=== PATIENT | female | born 1990 | race Caucasian/White ===

== ENCOUNTER 2023-04-28 09:15 | Emergency (ER) | payer OTHER ==
[2023-04-28 09:21] VITALS: TEMP 98.1
[2023-04-28] MEDS ORDERED: ORPHENADRINE 30 MG/ML 2 ML VIAL IM STA (09:35)
[2023-04-28] MEDS ORDERED: KETOROLAC 15 MG/ML 1 ML VIAL IM STA (09:35)
--- NOTE | 2023-04-28 09:35 | ED ---
Back Pain HPI - General Chief Complaint: Back Pain/Injury Stated Complaint: fall,back pain Time Seen by Provider: 04/28/23 09:30 Source: patient, RN notes reviewed Limitations: no limitations - History of Present Illness Initial Comments: Patient is a 32-year-old female presented to the emergency room with complaints of lower back pain that is acute on chronic. She reports falling off of a step stool and landing against her cabinets. She states that since that time she has had an increase in her lower back pain. She has chronic neuropathy in her feet from her low back pain and intermittent sciatica worse to her left than her right which she states is unchanged since the fall. She denies any new paresthesias, weakness, saddle paresthesia, bowel or bladder incontinence or other red flag symptoms for cauda equina. - Related Data Previous Rx's Medication Instructions Recorded Cyclobenzaprine HCl 10 mg PO TID PRN 7 Days #21 tab 04/28/23 Ketorolac [Toradol] 10 mg PO Q8H PRN 5 Days #15 tab 04/28/23 Allergies Allergy/AdvReac Type Severity Reaction Status Date / Time egg Allergy Nausea & Verified 04/28/23 09:22 Vomiting acetaminophen [From Percocet] AdvReac Nausea & Verified 04/28/23 09:22 Vomiting azithromycin AdvReac Nausea & Verified 04/28/23 09:22 Vomiting oxycodone [From Percocet] AdvReac Nausea & Verified 04/28/23 09:22 Vomiting Review of Systems ROS Statement: Those systems with pertinent positive or pertinent negative responses have been documented in the HPI. ROS Other: All systems not noted in ROS Statement are negative. Past Medical History Past Medical History: No Reported History History of Any Multi-Drug Resistant Organisms: None Reported Past Surgical History: Section Past Psychological History: Anxiety, Depression Smoking Status: Current every day smoker Past Alcohol Use History: None Reported Past Drug Use History: None Reported General Exam Limitations: no limitations General appearance: alert, in no apparent distress Head exam: Present: atraumatic, normocephalic, normal inspection Eye exam: Present: normal appearance, PERRL, EOMI. Absent: scleral icterus, conjunctival injection, periorbital swelling ENT exam: Present: normal exam, mucous membranes moist Neck exam: Present: normal inspection, full ROM Respiratory exam: Absent: respiratory distress, accessory muscle use Cardiovascular Exam: Present: regular rate GI/Abdominal exam: Present: soft. Absent: distended, tenderness, guarding, rebound, rigid Extremities exam: Absent: full ROM (BLE ROM limited by pain) Back exam: Present: tenderness (generalized without increase with palpation). Absent: CVA tenderness (R), CVA tenderness (L), muscle spasm, paraspinal tenderness, vertebral tenderness Neurological exam: Present: alert, oriented X3, CN II-XII intact Psychiatric exam: Present: normal affect, normal mood Skin exam: Present: warm, dry, intact, normal color. Absent: rash Course Vital Signs 04/28/23 04/28/23 09:17 11:34 Temperature 98.1 F 98.1 F Pulse Rate 99 82 Respiratory 18 16 Rate Blood Pressure 123/85 101/65 O2 Sat by Pulse 99 100 Oximetry Medical Decision Making - Medical Decision Making Was pt. sent in by a medical professional or institution (, PA, DIGITAL ADVISOR, urgent care, hospital, or assisted...) When possible be specific @ -No Did you speak to anyone other than the patient for history (EMS, parent, family, police, friend...)? What history was obtained from this source @ -No Did you review nursing and triage notes (agree or disagree)? Why? @ -I reviewed and agree with nursing and triage notes Were old charts reviewed (outside hosp., previous admission, EMS record, old EKG, old radiological studies, urgent care reports/EKG's, assisted records)? Report findings @ -No old charts were reviewed Differential Diagnosis (chest pain, altered mental status, abdominal pain women, abdominal pain men, vaginal bleeding, weakness, fever, dyspnea, syncope, headache, dizziness, GI bleed, back pain, seizure, CVA, palpatations, mental health, musculoskeletal)? @ -Differential Back Pain: Strain, zoster, cauda equina syndrome, epidural abscess, vertebral osteomyelitis, discitis, fracture, subluxation, disc herniation, DJD, spinal stenosis, dissection, AAA, pancreatitis, peptic ulcer disease, pyelonephritis, kidney stone, this is not meant to be an all-inclusive list. EKG interpreted by me (3pts min.). @ -None done X-rays interpreted by me (1pt min.). @ -xr lumbosacral spine: No acute fracture or dislocation. CT interpreted by me (1pt min.). @ -None done U/S interpreted by me (1pt. min.). @ -None done What testing was considered but not performed or refused? (CT, X-rays, U/S, labs)? Why? @ -None What meds were considered but not given or refused? Why? @ -None Did you discuss the management of the patient with other professionals (professionals i.e. DrTamela, PA, DIGITAL ADVISOR, lab, RT, psych nurse, social service agency director, chiropractic neurologist, teacher, chief supply chain officer, lining caser)? Give summary @ -No Was smoking cessation discussed for >3mins.? @ -No Was critical care preformed (if so, how long)? @ -No Were there social determinants of health that impacted care today? How? (Homelessness, low income, unemployed, alcoholism, drug addiction, tr ansportation, low edu. Level, literacy, decrease access to med. care, residential, rehab)? @ -No Was there de-escalation of care discussed even if they declined (Discuss DNR or withdrawal of care, Hospice)? DNR status @ -No What co-morbidities impacted this encounter? (DM, HTN, Smoking, COPD, CAD, Cancer, CVA, ARF, Chemo, Hep., AIDS, mental health diagnosis, sleep apnea, morbid obesity)? @ -None Was patient admitted / discharged? Hospital course, mention meds given and route, prescriptions, significant lab abnormalities, going to OR and other pertinent info. @ -32 -year-old woman presenting to the emergency room with complaints of increase in chronic back pain ongoing since she fell off a stepladder landing against cabinets earlier this week. She reports that the pain has become difficult to bear. Setting of trauma will obtain x-ray of the lumbar sacral spine. Will give Toradol and Norflex pain and monitor response. Pain persists after Toradol and Norflex, will give IM morphine x-ray negative for acute fracture or dislocation. Pain improved with morphine. Diagnostic imaging results discussed with patient. Discussed etiology of acute on chronic back pain encouraging low back exercises as tolerated along with avoidance of bed rest and avoidance of heavy lifting. Advised to utilize prescriptions of Toradol and Flexeril for pain and muscle spasms as needed. Advised Do not take other NSAIDs or steroids including [id number] Motrin, Aleve or aspirin while taking Toradol. Encouraged Application of ice or heat to her lower back may help with pain and follow-up with primary care provider. Will discharge in stable condition on muscle relaxer and anti-inflammatory to help treat acute on chronic back pain encouraging follow-up with primary care provider. Undiagnosed new problem with uncertain prognosis? @ -No Drug Therapy requiring intensive monitoring for toxicity (Heparin, Nitro, Insulin, Cardizem)? @ -No Were any procedures done? @ -No Diagnosis/symptom? @ -Low back pain Acute, or Chronic, or Acute on Chronic? @ -Acute on chronic Uncomplicated (without systemic symptoms) or Complicated (systemic symptoms)? @ -Uncomplicated Side effects of treatment? @ -No Exacerbation, Progression, or Severe Exacerbation? @ -No Poses a threat to life or bodily function? How? (Chest pain, USA, PR, pneumonia, PE, COPD, DKA, ARF, appy, cholecystitis, CVA, Diverticulitis, Homicidal, Suicidal, threat to staff... and all critical care pts) @ -No Case discussed with Dr. Stuart. - Radiology Data Radiology results: report reviewed, image reviewed Disposition Clinical Impression: Low back pain Disposition: HOME SELF-CARE Instructions (If sedation given, give patient instructions): Acute Low Back Pain (ED), Chronic Back Pain (DC), Lower Back Exercises (ED) Additional Instructions: Utilize Toradol and Flexeril for pain and muscle spasms as needed. Do not take other NSAIDs or steroids including [id number] Motrin, Aleve or aspirin while taking Toradol. Application of ice or heat to her lower back may help with pain. Gentle range of motion and low back exercises encouraged. Please follow-up with your primary care provider. Please return to the Emergency Department if symptoms worsen or any other concerns. Prescriptions: Cyclobenzaprine HCl 10 mg PO TID PRN 7 Days #21 tab PRN Reason: Spasms Ketorolac [Toradol] 10 mg PO Q8H PRN 5 Days #15 tab PRN Reason: Pain Is patient prescribed a controlled substance at d/c from ED?: No Referrals: None,Stated [Primary Care Provider] - 1-2 days Time of Disposition: 11:29
--- NOTE | 2023-04-28 10:05 | XR ---
EXAMINATION TYPE: XR lumbosacral spine min 4V DATE OF EXAM: 04/28/2023 CLINICAL HISTORY: pain COMPARISON: NONE TECHNIQUE: Frontal, lateral, and oblique images of the lumbar spine are obtained. FINDINGS: There are 5 lumbar type vertebral bodies identified. The lumbar spine shows satisfactory alignment without evidence of acute fracture or dislocation. Vertebral body heights are within normal limits. Disc spaces are well preserved. The overlying soft tissue appears unremarkable. IMPRESSION: No acute fracture or dislocation is seen in the lumbar spine.ICD 10 NO FRACTURE, INITIAL EVALUATION
[2023-04-28] MEDS ORDERED: MORPHINE SULFATE 4 MG/ML SYRINGE IM STA (10:54)
[2023-04-28 11:39] VITALS: BP 101/65; PULSE 82; RESP 16
== END 2023-04-28 11:40 | disposition home or self-care (01) ==
LOC: EC 09:15
DX: M54.50 Low back pain, unspecified (principal); F17.200 Nicotine dependence, unspecified, uncomplicated; Z86.59 Personal history of other mental and behavioral disorders; Z91.012 Allergy to eggs; Z88.0 Allergy status to penicillin; Z88.8 Allergy status to other drugs, medicaments and biological substances; W10.8XXA Fall (on) (from) other stairs and steps, initial encounter
CPT/HCPCS: 99283; 72110; 96372 ×3; J2270; J2360; J1885

== ENCOUNTER 2023-09-15 08:59 | Observation (INO) | payer OTHER ==
--- NOTE | 2023-09-15 09:41 | ED ---
General Adult HPI - General Chief complaint: Back Pain/Injury Stated complaint: back pain Time Seen by Provider: 09/15/23 09:17 Source: patient Mode of arrival: ambulatory Limitations: no limitations - History of Present Illness Initial comments: Dictation was produced using [employer] dictation software. please excuse any grammatical, word or spelling errors. Chief Complaint: 33-year-old female with back pain History of Present Illness: 33-year-old female she has history of chronic back pain. 8 years ago she was diagnosed with herniated disc. She moved here from [place]. She has not had any back care here in town. States that over the last 3-4 days she's been having worsening back pain. States it feels like a crunching sensation to her back that radiates down her posterior right lower extremity. She has also dribbling of urine along with several anesthesia. She states that she's had the tingling into her legs for over a year. The ROS documented in this emergency department record has been reviewed and confirmed by me. Those systems with pertinent positive or negative responses have been documented in the HPI. All other systems are other negative and/or noncontributory. - Related Data Previous Rx's Medication Instructions Recorded Cyclobenzaprine HCl 10 mg PO TID PRN 7 Days #21 tab 04/28/23 Ketorolac [Toradol] 10 mg PO Q8H PRN 5 Days #15 tab 04/28/23 Allergies Allergy/AdvReac Type Severity Reaction Status Date / Time egg Allergy Nausea & Verified 04/28/23 09:22 Vomiting acetaminophen [From Percocet] AdvReac Nausea & Verified 04/28/23 09:22 Vomiting azithromycin AdvReac Nausea & Verified 04/28/23 09:22 Vomiting oxycodone [From Percocet] AdvReac Nausea & Verified 04/28/23 09:22 Vomiting flu vaccine AdvReac Unknown Uncoded 09/15/23 09:11 Review of Systems ROS Statement: Those systems with pertinent positive or pertinent negative responses have been documented in the HPI. ROS Other: All systems not noted in ROS Statement are negative. Past Medical History Past Medical History: GERD/Reflux Additional Past Medical History / Comment(s): control, boarderline sleep apnea, History of Any Multi-Drug Resistant Organisms: None Reported Past Surgical History: Section, Tonsillectomy Additional Past Surgical History / Comment(s): D & C, Exploritoty surgery to check ovaries, top dentures, Past Psychological History: Anxiety, Depression Smoking Status: Current every day smoker Past Alcohol Use History: None Reported Past Drug Use History: None Reported General Exam - General Exam Comments Initial Comments: PHYSICAL EXAM: General Impression: Alert and oriented x3, acute distress secondary to pain HEENT: Normocephalic atraumatic, extra-ocular movements intact, pupils equal and reactive to light bilaterally, mucous membranes moist. Cardiovascular: Heart regular rate and rhythm Chest: Able to complete full sentences, no retractions, no tachypnea Abdomen: abdomen soft, non-tender, non-distended, no organomegaly Musculoskeletal: Pulses present and equal in all extremities, no peripheral edema Motor: no focal deficits noted Neurological: CN II-XII grossly intact, no focal motor deficits noted. Reported sensory deficit to light touch of the saddle area along with the right gluteus Skin: Intact with no visualized rashes Psych: Normal affect and mood Limitations: no limitations Course Vital Signs 09/15/23 09:05 Temperature 98.4 F Pulse Rate 104 H Respiratory 20 Rate Blood Pressure 133/73 O2 Sat by Pulse 98 Oximetry Medical Decision Making - Medical Decision Making Was pt. sent in by a medical professional or institution (, PA, BUSINESS MANAGEMENT MANAGER, urgent care, hospital, or long term...) When possible be specific @ -No Did you speak to anyone other than the patient for history (EMS, parent, family, police, friend...)? What history was obtained from this source @ -No Did you review nursing and triage notes (agree or disagree)? Why? @ -I reviewed and agree with nursing and triage notes Were old charts reviewed (outside hosp., previous admission, EMS record, old E KG, old radiological studies, urgent care reports/EKG's, long term records)? Report findings @ -No old charts were reviewed Differential Diagnosis (chest pain, altered mental status, abdominal pain women, abdominal pain men, vaginal bleeding, musculoskeletal, weakness, fever, dyspnea, syncope, headache, dizziness, GI bleed, back pain, seizure, CVA, palpatations, mental health)? @ -Differential Back Pain: Strain, zoster, cauda equina syndrome, epidural abscess, vertebral osteomyelitis, discitis, fracture, subluxation, disc herniation, DJD, spinal stenosis, dissection, AAA, pancreatitis, peptic ulcer disease, pyelonephritis, kidney stone, this is not meant to be an all-inclusive list. EKG interpreted by me (3pts min.). @ -None done X-rays interpreted by me (1pt min.). @ -None done CT interpreted by me (1pt min.). @ -Lumbar spine shows degenerative spine disease U/S interpreted by me (1pt. min.). @ -None done What testing was considered but not performed or refused? (CT, X-rays, U/S, labs)? Why? @ -None What meds were considered but not given or refused? Why? @ -None Did you discuss the management of the patient with other professionals (professionals i.e. , PA, BUSINESS MANAGEMENT MANAGER, lab, RT, psych nurse, social service director, hand glove cleaner, teacher, electoral officer, piano case and bench assembler)? Give summary @ -Case discussed with mid-level provider, Joseph Guerrero who spoke with spine surgeon and agreeable with observation admission Was smoking cessation discussed for >3mins.? @ -No Was critical care preformed (if so, how long)? @ -No Were there social determinants of health that impacted care today? How? (Homelessness, low income, unemployed, alcoholism, drug addiction, transportation, low edu. Level, literacy, decrease access to med. care, snf, rehab)? @ -No Was there de-escalation of care discussed even if they declined (Discuss DNR or withdrawal of care, Hospice)? DNR status @ -No What co-morbidities impacted this encounter? (DM, HTN, Smoking, COPD, CAD, Cancer, CVA, ARF, Chemo, Hep., AIDS, mental health diagnosis, sleep apnea, morbid obesity)? @ -None Was patient admitted / discharged? Hospital course, mention meds given and route, prescriptions, significant lab abnormalities, going to OR and other pertinent info. @ -33-year-old feel presents with acute on chronic back pain. She is also acute on chronic right lower extremity and saddle anesthesia along with reported urinary dribbling. Vital signs are stable. Patient has extensive back history. She does not have established spinal care here in [place] per she received most of her care in [place]. They just moved here. Labs unremarkable. Imaging study shows degenerative back disease. Case discussed with orthopedic spine. They're agreeable with observation admission. MRI of lumbar spine ordered. Undiagnosed new problem with uncertain prognosis? @ -No Drug Therapy requiring intensive monitoring for toxicity (Heparin, Nitro, Insulin, Cardizem)? @ -No Were any procedures done? @ -No Diagnosis/symptom? Acute, or Chronic, or Acute on Chronic? Uncomplicated (without systemic symptoms) or Complicated (systemic symptoms)? @ -Back pain with neurologic features Side effects of treatment? @ -No Exacerbation, Progression, or Severe Exacerbation? @ -No Poses a threat to life or bodily function? How? (Chest pain, USA, OR, pneumonia, PE, COPD, DKA, ARF, appy, cholecystitis, CVA, Diverticulitis, Homicidal, Suicidal, threat to staff... and all critical care pts) @ -yes - Lab Data Result diagrams: 09/15/23 10:03 09/15/23 10:03 Lab Results 09/15/23 09/15/23 09/15/23 Range/Units 10:03 10:03 10:03 WBC 12.5 H (3.8-10.6) k/uL RBC 4.56 (3.80-5.40) m/uL Hgb 13.2 (11.4-16.0) gm/dL Hct 41.3 (34.0-46.0) % MCV 90.7 (80.0-100.0) fL MCH 29.0 (25.0-35.0) pg MCHC 32.0 (31.0-37.0) g/dL RDW 13.7 (11.5-15.5) % Plt Count 422 (150-450) k/uL MPV 7.4 Neutrophils % 64 % Lymphocytes % 28 % Monocytes % 4 % Eosinophils % 3 % Basophils % 0 % Neutrophils # 7.9 H (1.3-7.7) k/uL Lymphocytes # 3.5 (1.0-4.8) k/uL Monocytes # 0.5 (0-1.0) k/uL Eosinophils # 0.3 (0-0.7) k/uL Basophils # 0.0 (0-0.2) k/uL PT 10.3 (10.0-12.5) sec INR 0.9 (<1.2) APTT 25.7 (22.0-30.0) sec Sodium 140 (137-145) mmol/L Potassium 4.3 (3.5-5.1) mmol/L Chloride 106 (98-107) mmol/L Carbon Dioxide 25 (22-30) mmol/L Anion Gap 9 mmol/L BUN 7 (7-17) mg/dL Creatinine 0.63 (0.52-1.04) mg/dL Est GFR (CKD-EPI)AfAm >90 (>60 ml/min/1.73 sqM) Est GFR (CKD-EPI)NonAf >90 (>60 ml/min/1.73 sqM) Glucose 86 (74-99) mg/dL Calcium 9.4 (8.4-10.2) mg/dL Disposition Clinical Impression: Back pain Disposition: ADMITTED IP TO THIS HOSP Condition: Fair Referrals: Gabriella Cabrera MD [Primary Care Provider] - 1-2 days Decision Time: 11:00
[2023-09-15 10:29] LABS: Basophils % (A) 0 %; Eosinophils # (A) 0.3 k/uL (0-0.7); Eosinophils % (A) 3 %; HCT 41.3 % (34.0-46.0); HGB 13.2 gm/dL (11.4-16.0); Lymphocytes # (A) 3.5 k/uL (1.0-4.8); Lymphocytes % (A) 28 %; MCV 90.7 fL (80.0-100.0); Mean Platelet Volume 7.4; Monocytes # (A) 0.5 k/uL (0-1.0); Monocytes % (A) 4 %; Neutrophils # (A) 7.9 k/uL (1.3-7.7); Neutrophils % (A) 64 %; Platelet Count 422 k/uL (150-450); RBC 4.56 m/uL (3.80-5.40); RDW 13.7 % (11.5-15.5); WBC 12.5 k/uL (3.8-10.6)
[2023-09-15 10:43] LABS: African American GFR (CKD) >90 (>60 ml/min/1.73 sqM); Anion Gap 9 mmol/L; Blood Urea Nitrogen 7 mg/dL (7-17); Calcium 9.4 mg/dL (8.4-10.2); Carbon Dioxide 25 mmol/L (22-30); Chloride 106 mmol/L (98-107); Glucose 86 mg/dL (74-99); INR 0.9 (<1.2); Non-African American GFR(CKD) >90 (>60 ml/min/1.73 sqM); Partial Thromboplastin Time 25.7 sec (22.0-30.0); Potassium 4.3 mmol/L (3.5-5.1); Prothrombin Time 10.3 sec (10.0-12.5); Sodium 140 mmol/L (137-145)
--- NOTE | 2023-09-15 10:45 | CT ---
EXAMINATION TYPE: CT lumbar spine wo con DATE OF EXAM: 09/15/2023 COMPARISON: None HISTORY: 33-year-old female Pt c/o lower back pain, stating hx L5-S1 disk herniation. TECHNIQUE: Contiguous axial scanning of the lumbar spine without IV contrast. Coronal and sagittal re constructions performed. CT DLP: 1859.6 mGycm Automated exposure control for dose reduction was used. FINDINGS: There is mild degenerative disc disease scattered throughout. Mild disc space narrowing upper lumbar spine and also L5-S1 where bulging disc is present. No large focal disc herniation or significant spinal canal stenosis seen. There is no significant neuroforaminal narrowing appreciated on either side. Alignment is maintained. Vertebral body heights are preserved. No prevertebral paravertebral soft tissue abnormality. IMPRESSION: SCATTERED MILD DEGENERATIVE DISC DISEASE UPPER LUMBAR SPINE AND ALSO AT L5-S1 WHERE MILD DISC BULGING IS PRESENT. NO LARGE FOCAL DISC HERNIATION OR SIGNIFICANT SPINAL CANAL OR FORAMINAL STENOSIS.
[2023-09-15] MEDS ORDERED: KETOROLAC 15 MG/ML 1 ML VIAL IVP STA (11:10)
[2023-09-15] MEDS ORDERED: NALOXONE 0.4 MG/ML 1 ML VIAL IV PRN (11:22)
[2023-09-15] MEDS ORDERED: CYCLOBENZAPRINE 10 MG TAB PO PRN (12:07)
--- NOTE | 2023-09-15 12:25 | P.HPOR ---
History of Present Illness H&P Date: 09/15/23 Chief Complaint: Uncontrolled low back pain and right lower extremity radicu lopathy Patient is a very pleasant 33-year-old female who is seen and examined the emergency department room #29 for further evaluation of her lumbar spine. She states she had been residing in [place] and recently moved to [place] in April 2023. She states she has been experiencing pain in her lumbar spine with pain and numbness radiating down her right buttock, posterior thigh, calf, to the bottom of her right foot after undergoing an emergent C- section 8 years ago. She states over the past several days her pain has significantly worsened. She has reduced sensation in her posterior thigh and calf with palpation as compared to palpation over the anterior thigh and rincon. She does feel some weakness with her right foot. She denies any left lower extremity weakness or radiculopathy bilaterally. She states she presented to the emergency department due to her low back and right lower extremity pain as it has been uncontrollable in the outpatient setting. She states she did have some evaluation through [facility] since moving to [place] and was told she does have some changes at her spine but she did not undergo specific treatment at that time. She states currently she would like to try to avoid surgical intervention. She would be willing to work to further treatment options including treatment with pain management. She denies any recent injuries. She states over the past 2-3 months she has had some numbness and is unable to tell when she needs to urinate. She states she has some numbness from her lumbar spine radiating around to her side to the lower abdomen she has difficulty sensing the need to urinate. She states she will have some dribbling of urine and that no she must get to the restroom quickly. This is unchanged since exacerbation of her symptoms. She has not sought specific treatment with urology in regards to this numbness and change with urination. She does have some loose stools but is not having difficulty with bowel movements. She does not report any other significant medical diagnoses. She is a current every day smoker. She has had lumbar CT imaging performed. Stat lumbar MRI imaging is pending. Past Medical History Past Medical History: GERD/Reflux Additional Past Medical History / Comment(s): control, boarderline sleep apnea, History of Any Multi-Drug Resistant Organisms: None Reported Past Surgical History: Section, Tonsillectomy Additional Past Surgical History / Comment(s): D & C, Exploritoty surgery to check ovaries, top dentures, Past Psychological History: Anxiety, Depression Smoking Status: Current every day smoker Past Alcohol Use History: None Reported Past Drug Use History: None Reported Medications and Allergies Home Medications Medication Instructions Recorded Confirmed Type Acetaminophen Tab [Tylenol Tab] 1,000 mg PO Q6HR PRN 09/15/23 09/15/23 History Ergocalciferol (Vitamin D2) 1,250 mcg PO MO 09/15/23 09/15/23 History [Drisdol (50,000 Iu)] Ferrous Sulfate [Feosol] 325 mg PO DAILY 09/15/23 09/15/23 History diphenhydrAMINE [Benadryl] 50 mg PO BID 09/15/23 09/15/23 History norethindrone-e.estradioL-iron 1 tab PO DAILY 09/15/23 09/15/23 History [Blisovi Fe 1-20 Tablet] Allergies Allergy/AdvReac Type Severity Reaction Status Date / Time egg Allergy Nausea & Verified 09/15/23 11:59 Vomiting azithromycin AdvReac Nausea & Verified 09/15/23 11:59 Vomiting oxycodone [From Percocet] AdvReac Nausea & Verified 09/15/23 11:59 Vomiting flu vaccine AdvReac Unknown Uncoded 09/15/23 09:11 Physical Examination Physical exam: Patient is awake, alert, and oriented 3 Vital signs stable Good chest excursion with deep inspiration and expiration Abdomen soft nontender Examination of lumbar spine reveals skin is intact with no abrasions, lacerations, or bruises; no erythema, purulence or signs of infection Dorsiflexion, plantarflexion, and extensor hallucis longus positive sustained bilaterally Lower extremity strength 5/5 bilaterally except for right plantarflexion Motor strength of lower extremities 4/5 including plantarflexion on the right Patellar reflex 2+ bilaterally and Achilles reflexes 2+ bilaterally No lower extremity hyperreflexia bilaterally Straight leg test negative bilateral lower extremities Negative Lasegue's test bilaterally No signs or symptoms of DVT; no calf pain No pain with internal and external rotation of the hips bilaterally Neurovascularly intact Patient is reduced sensation with palpation over the posterior right thigh and calf Some reduced sensation with palpation over the lumbar spine along the midline and towards the right Results Pertinent studies: CT lumbar spine taken on 09/15/2023: L5-S1 disc bulging without obvious large disc herniation; no obvious significant spinal canal stenosis or foraminal yuli nosis: Overall alignment is adequate maintained; no evidence of spondylolisthesis; no compression fracture deformity - Labs Labs: Abnormal Lab Results - Last 24 Hours (Table) 09/15/23 Range/Units 10:03 WBC 12.5 H (3.8-10.6) k/uL Neutrophils # 7.9 H (1.3-7.7) k/uL H & H 09/15/23 Range/Units 10:03 Hgb 13.2 (11.4-16.0) gm/dL Hct 41.3 (34.0-46.0) % Coagulation 09/15/23 Range/Units 10:03 INR 0.9 (<1.2) Result Diagrams: 09/15/23 10:03 09/15/23 10:03 Assessment and Plan Assessment: Assessment: Intractable low back pain Chronic right lower extremity radiculopathy over the past 8 years following emergent Right lower extremity pain, numbness, tingling over S1 distribution Right lower extremity weakness with plantar flexion Numbness at the lumbar spine at the midline, right lumbar spine, and lower abdomen Reduced sensation with palpation of the right posterior thigh and calf Difficulty with sensing urination Current every day smoker Obesity (1) Acute exacerbation of chronic low back pain Current Visit: Yes Status: Acute Code(s): M54.50 - LOW BACK PAIN, UNSPECIFIED; G89.29 - OTHER CHRONIC PAIN SNOMED Code(s): 621920185 (2) Lumbar back pain with radiculopathy affecting right lower extremity Current Visit: Yes Status: Acute Code(s): M54.16 - RADICULOPATHY, LUMBAR REGION SNOMED Code(s): 284522302 (3) Right leg weakness Current Visit: Yes Status: Acute Code(s): R29.898 - OTH SYMPTOMS AND SIGNS INVOLVING THE MUSCULOSKELETAL SYSTEM SNOMED Code(s): 017628407 (4) Difficulty in urination Current Visit: Yes Status: Acute Code(s): R39.198 - OTHER DIFFICULTIES WITH MICTURITION SNOMED Code(s): 188597276 (5) Current every day smoker Current Visit: Yes Status: Acute Code(s): F17.200 - NICOTINE DEPENDENCE, UNSPECIFIED, UNCOMPLICATED SNOMED Code(s): 963982938 (6) Obesity Current Visit: Yes Status: Acute Code(s): E66.9 - OBESITY, UNSPECIFIED SNOMED Code(s): 980283588 (7) Right leg paresthesias Current Visit: Yes Status: Acute Code(s): R20.2 - PARESTHESIA OF SKIN SNOMED Code(s): 19982293991180566 (8) History of Current Visit: Yes Status: Acute Code(s): Z98.891 - HISTORY OF UTERINE SCAR FROM PREVIOUS SURGERY SNOMED Code(s): 791236902 Plan: Plan: 1. Patient has been experiencing ongoing right lower extremity radiculopathy with pain, numbness, and tingling into the right buttock radiating down the posterior thigh and calf to the bottom of the foot over the past 8 years fol lowing emergent . She denies any recent injuries. With past 3-4 days her symptoms have been exacerbated and she's had significant difficulty controlling her pain at home. She feels the pain radiate from her lumbar spine and down the right lower extremity. She also experiences some numbness in her lumbar spine radiating around her lower abdomen with difficulty sensing urination. She states she will start to dribble urine and must go to the restroom quickly. But she has difficulty knowing when she needs to use the restroom. She has loose stools but not difficulty with having a bowel movement. Her symptoms in regards to urination have been ongoing over the past 2-3 months and have not changed. She has not had specific evaluation or treatment in this regard. CT imaging shows L5-S1 disc bulging. We do not see a significant degenerative change at her lumbar spine. Currently, stat MRI imaging of the lumbar spine has been ordered for further evaluation to better assess the spinal cord, nerves, and discs of her lumbar spine given the severity of her symptoms. We do feel that her spinal cord, nerves, and intervertebral discs will be better visualized on MRI imaging. Following completion of this MRI, we'll plan to review this imaging he will determine plan of care proceeding forward. Currently, we are not planning for acute surgical intervention in regards to her lumbar spine. She would like to exhaust conservative treatment options. We will plan to consult pain management for further evaluation. We did discuss if there are significant findings of her lumbar spine that would correlate with her change in urinary status over the past 2-3 months, we could consider referral with urology. Patient has had some difficulty with pain control. We will currently planned and hydrocodone 5 mg/325 mg, 1, every 8 hours as needed for acute pain and cyclobenzaprine 10 mg, 1, 3 times a day, as needed for muscle spasm. Plan of care was discussed in detail with the patient and she agrees with this plan. We will continue to follow the patient closely. Time with Patient: Greater than 30 (Including obtaining history, physical examination, reviewing of imaging, and dictation.)
[2023-09-15] MEDS: SODIUM CHLORIDE 0.9% 1,000 ML IV SCH (12:30)
[2023-09-15] MEDS: HYDROcodone/APAP 5-325MG 1 EACH TAB PO PRN ×2 (14:21→20:29)
--- NOTE | 2023-09-15 16:02 | MR ---
EXAMINATION TYPE: MR lumbar spine wo con DATE OF EXAM: 09/15/2023 3:45 PM CLINICAL INDICATION:Female, 33 years old with history of back pain with acute on chronic saddle anest hesia; PHH, Low back pain with acute on chronic saddle anesthesia COMPARISON: None TECHNIQUE: Multi planar, multi sequence imaging was performed utilizing: T1-weighted, T2-weighted, a nd turbo inversion recovery imaging of the lumbar spine. IV Contrast: cc . (None if empty) FINDINGS: Alignment: The lumbar vertebral bodies have preserved heights and alignment. Cord: The conus medullaris and the distal spinal cord appear unremarkable with regards to their signa l intensity and morphology. Bones/Discs: Mild degeneration changes throughout the spine with osteophyte formation and facet joint arthropathy. Intervertebral disc signal is maintained. Scattered Schmorl's nodes noted. T12-L1: No evidence of significant spinal canal stenosis or neural foraminal stenosis. L1-L2: No evidence of significant spinal canal stenosis or neural foraminal stenosis. L2-L3: No evidence of significant spinal canal stenosis or neural foraminal stenosis. L3-L4: No evidence of significant spinal canal stenosis or neural foraminal stenosis. L4-L5: No evidence of significant spinal canal stenosis or neural foraminal stenosis. L5-S1: There may be a small disc protrusion centrally. No significant spinal canal stenosis. Facet wanda int arthropathy with mild bilateral neural foraminal stenosis. No significant spinal canal or neural foraminal stenosis in the remainder of the visualized levels. Other findings: None. IMPRESSION: 1. L5-S1 disc protrusion without significant spinal canal stenosis. 2. Mild disc degeneration with associated osteoarthritic changes. No significant neural foraminal st enosis.
[2023-09-15] MEDS: KETOROLAC 15 MG/ML 1 ML VIAL IVP PRN ×2 (17:08→23:04)
[2023-09-16] MEDS: HYDROcodone/APAP 5-325MG 1 EACH TAB PO PRN ×4 (01:51→20:32)
[2023-09-16] MEDS: KETOROLAC 15 MG/ML 1 ML VIAL IVP PRN ×2 (05:25→11:32)
--- NOTE | 2023-09-16 14:07 | P.PN ---
Progress Note - Text Progress Note Date: 09/16/23 Orthopedic spine: History of present illness: Patient is seen and examined at bedside for follow-up evaluation of her lumbar spine. She has not had any significant change better or worse as compared to her symptoms she was experiencing yesterday. She is having significant spasms in her lumbar spine. She continues to experience pain in her lumbar spine with pain and numbness radiating down her right buttock, posterior thigh, calf, to the bottom of her right foot after undergoing an emergent 8 years ago. She states over the past several days her pain has significantly worsened. She has reduced sensation in her posterior thigh and calf with palpation as compared to palpation over the anterior thigh and rincon. She does feel some weakness with her right foot. She denies any left lower extremity weakness or radiculopathy bilaterally. She states she presented to the emergency department due to her low back and right lower extremity pain as it has been uncontrollable in the outpatient setting. Since being seen and examined yesterday she has had MRI imaging of the lumbar spine performed. She is also been seen and examined by pain management. Pain management is scheduling her for an injection tomorrow, 09/17/2023, para lumbar spine. She states over the past 2-3 months she has had some numbness and is unable to tell when she needs to urinate. She states she has some numbness from her lumbar spine radiating around to her side to the lower abdomen she has difficulty sensing the need to urinate. She states she will have some dribbling of urine and that no she must get to the restroom quickly. This is unchanged since exacerbation of her symptoms. She has not sought specific treatment with urology in regards to this numbness and change with urination. She does have some loose stools but is not having difficulty with bowel movements. She states today that she does have a regular high tension tester and will plan to follow back up with them as she does feels possible her symptoms could be related to her possible difficulties after her previous . She does not report any other significant medical diagnoses. She is a current every day smoker. Physical exam: Patient is awake, alert, and oriented 3 Vital signs stable Good chest excursion with deep inspiration and expiration Abdomen soft nontender Examination of lumbar spine reveals skin is intact with no abrasions, lacerations, or bruises; no erythema, purulence or signs of infection Dorsiflexion, plantarflexion, and extensor hallucis longus positive sustained bilaterally Lower extremity strength 5/5 bilaterally except for right plantarflexion Motor strength of lower extremities 4/5 including plantarflexion on the right Patellar reflex 2+ bilaterally and Achilles reflexes 2+ bilaterally No lower extremity hyperreflexia bilaterally Straight leg test negative bilateral lower extremities Negative Lasegue's test bilaterally No signs or symptoms of DVT; no calf pain No pain with internal and external rotation of the hips bilaterally Neurovascularly intact Patient is reduced sensation with palpation over the posterior right thigh and calf Some reduced sensation with palpation over the lumbar spine along the midline and towards the right Pertinent studies: MRI of the lumbar spine taken on 09/15/2023: L5-S1 small central disc protrusion and facet joint arthropathy with mild neural foraminal stenosis without significant central canal stenosis; T12-L5 no significant herniated nucleus pulposus, central canal stenosis, or neural foraminal stenosis; no spond ylolisthesis; intervertebral disc spacing appears to be adequately maintained; no compression fracture deformity CT lumbar spine taken on 09/15/2023: L5-S1 disc bulging without obvious large disc herniation; no obvious significant spinal canal stenosis or foraminal stenosis: Overall alignment is adequate maintained; no evidence of spondylolisthesis; no compression fracture deformity Assessment: Intractable low back pain L5-S1 small central disc protrusion with mild neural foraminal stenosis without significant central canal stenosis L5-S1 facet joint arthropathy Chronic right lower extremity radiculopathy over the past 8 years following emergent Right lower extremity pain, numbness, tingling over S1 distribution Right lower extremity weakness with plantar flexion Numbness at the lumbar spine at the midline, right lumbar spine, and lower abdomen Reduced sensation with palpation of the right posterior thigh and calf Lumbar paraspinal muscle spasm Difficulty with sensing urination Current every day smoker Obesity Plan: 1. Patient has been experiencing ongoing right lower extremity radiculopathy with pain, numbness, and tingling into the right buttock radiating down the posterior thigh and calf to the bottom of the foot over the past 8 years following emergent . She denies any recent injuries. With past 3-4 days her symptoms have been exacerbated and she's had significant difficulty controlling her pain at home. She feels the pain radiate from her lumbar spine and down the right lower extremity. She also experiences some numbness in her lumbar spine radiating around her lower abdomen with difficulty sensing urination. She states she will start to dribble urine and must go to the r estroom quickly. But she has difficulty knowing when she needs to use the restroom. She has loose stools but not difficulty with having a bowel movement. Her symptoms in regards to urination have been ongoing over the past 2-3 months and have not changed. She has not had specific evaluation or treatment in this regard. Lumbar MRI and CT imaging shows L5-S1 disc bulging centrally. There is some evidence of mild foraminal stenosis without evidence of central stenosis. There is no evidence of large herniated nucleus pulposus. We do not see a significant degenerative change at her lumbar spine. Discuss her lumbar MRI imaging in significant detail. We're not currently planning for any surgical intervention regards to her lumbar spine. We do not feel there are indications with surgical intervention would provide any significant improvement of her symptoms. It'll be highly unlikely that surgical intervention would provide any improvement of her symptoms and could potentially worsen her symptoms. We would recommend her exhausting conservative treatment from an orthopedic spine standpoint. She has been seen and examined by pain management. They're currently planning for an injection tomorrow, 09/17/2023, at her lumbosacral spine. I do feel this is a good plan of care as does the patient. She will also plan to continue following with pain management in the outpatient setting following discharge. We also discussed that due to the lack of significant findings on lumbar MRI imaging, her change in urinary status over the past 2-3 months does not correlate well with her lumbar spine. We do not feel her urinary changes is specifically related to her lumbar spine. Patient states currently she is planning to follow with her high tension tester for further evaluation in this regard and she has had some difficulty with her symptoms overall following her previous 8 years ago. If they do not find anything from a clinical psychology teacher/gynecology standpoint, she would consider referral to urology. We'll currently planning continue with medication as previous he prescribed for pain control including hydrocodone 5 mg/325 mg, 1, every 8 hours as needed for a cute pain and cyclobenzaprine 10 mg, 1, 3 times a day, as needed for muscle spasm. Plan of care was discussed in detail with the patient and she agrees with this plan. The patient was seen and examined at bedside. I agree with the above dictation. I reviewed the imaging with the x-rays the computed tomography scan and MRI. The patient does not have symptoms of cauda equina syndrome. She does not have evidence of any severe stenosis at her lumbar spine correlate with her pain. She does have some mild disc degeneration and mild central disc bulge at at L5- S1 without any significant stenosis. This has been ongoing for her and has been exacerbated over the past couple months and becoming more intense. As stated above we do not have any plans for surgical intervention. She does not need any stabilization or decompression at her lumbar spine at this point. I think the patient may be well suited for a dedicated conservative treatment. She was going through physical therapy several years ago and I think she can revisit this on an outpatient basis. I think she can be a candidate for pain management and interventional pain management as before meals fit. We have counseled them. They have discussed the possibly of doing an injection tomorrow on . I asked the patient if she would like to [facility] home and she is comfortable with going home and would like to return home to her 8-year-old child. I think we can discharge her home today and have her follow- up for her injection if we can make arrangements in that regard. She should continue her conservative treatment with pain management and with her primary care physician. She should follow up with us on an as-needed basis. She may do well with dedicated course of oral tapering steroid and her short-term pain medications. If she needs refills on medications she should seek this through her primary care physician or her painter chassis after discharge We will plan to discharge patient home tomorrow following her injection with pain management.
[2023-09-16] MEDS: NICOTINE 14MG/24HR PATCH TRANSDERM SCH (14:41)
--- NOTE | 2023-09-16 15:46 | P.PAINPG ---
Objective - Vital Signs Vital signs: Vital Signs Temp 98.1 F 09/16/23 07:04 Pulse 91 09/16/23 07:04 Resp 19 09/16/23 07:04 BP 106/69 09/16/23 07:04 Pulse Ox 100 09/16/23 07:04 FiO2 Intake & Output 09/15/23 09/16/23 09/16/23 18:59 06:59 18:59 Intake Total 240 Balance 240 Weight 108.862 kg 108.862 kg Intake: Intake, IV Titration 240 Amount Sodium Chloride 0.9% 1, 240 000 ml @ 20 mls/hr IV . Q24H GRACE Rx#:[id number] Other: Voiding Method Toilet Incontinent # Voids 2 - Labs CBC & Chem 7: 09/15/23 10:03 09/15/23 10:03 PQRS Measure Charge Sheet Comment: HISTORY OF PRESENT ILLNESS: A 33 yr old inpatient female w fiance at side as a referral from [facility] presents today w severe and chronic LBP secondary to DDD, spondylosis and facet arthropathy without myelopathy for evaluation. Pt was examined while reclining on bed in exam room. Pt states pain level is provoked at 8/10 in intensity, constant, localized in the R lower lumbar spine, predominantly axial, achy in character w occasional shooting pain towards the R calf and foot. Pain is provoked by weight bearing activities. Pain is alleviated by medications (Flint 5/325mg TID prn, Toradol 15mg/mL q6h prn, Flexeril 10mg TID prn, Narcan prn), heat, massage over the area, reclining, repositioning and rest. PMH: OA, GERD, Possible Sleep Apnea, MDD/ Anxiety PSH: Section (2014), Tonsillectomy, Abd Exploratory Laparoscopy, D &C (2021) SH: Daily tobacco use, No ETOH abuse, No illicit drug use. FH: Fa- CKD, Liver Disease. All: See list Meds: See list REVIEW OF ORGAN SYSTEMS: CONSTITUTIONAL: No fevers or chills. No recent weight loss. NEUROLOGICAL: + numbness and tingling along the distal e xtremities. No seizure disorders or headaches. MUSCULOSKELETAL: + pain PSYCHIATRIC: Denies current depression or suicidal thoughts. Physical Examinations : Constitutional : Cooperative , not in acute distress . Neurologic : Cranial nerve II to XII intact. No focal neurological deficits. Psychiatric : alert & oriented x 3. Matching mood & appropriate affect. Judgment & insight intact. Musculoskeletal : Cervical Spine Motor strength in the deltoid and biceps: Normal right side. Normal Left side Motor strength biceps and the wrist extensors: Normal right side . Normal left side Motor strength in the triceps muscle: Normal right side. Normal left side Deep tendon reflexes: Normal at the biceps. Normal at Brachioradialis. Normal at triceps Vertebral body tenderness to deep palpation over Cervical facet loading test: positive bilaterally Spurling test: positive bilaterally Neck distraction test: positive bilaterally Becka sign: positive bilaterally Lumbar spine Motor strength lower extremities ,thigh and legs 5/5 Right side , 5/5 Left side Deep tendon reflexes : Normal Knee Jerk. Normal Ankle Jerk Vertebral body tenderness over L5 Sloan Test positive over R L5-S1 Lumbar facet Loading Test: positive Right / positive Left Range of motion of the lumbar spine Flexion 30 degrees, extension 10 degrees Straight Leg Raise test: Left/ Right positive at degree Armida test: positive right / positive left. Severe tenderness over the Sacroiliac joint on the Right / Left sides Gaenslen test: positive bilaterally Seated flexion test: positive bila terally. Sacral spine : Severe tenderness over the Sacroiliac joint: right side / left side Range of motion: Flexion of the lumbar spine <60 degrees Range of motion: Extension of the lumbar spine <20 degrees Gaenslen's Test positive Armida test: positive right side / left side Thigh Thrust Test Sacral Thrust Test Imaging: CT non lumbar spine from 09/15/23 reviewed Assessment/ Plan : Lumbar DDD Recommendation of R TFESI L5-S1 #1. May need a series of injections for optimal pain relief. Risks, benefits of procedure discussed and patient verbalized understanding. Admits to anti- coagulant use or medical history of diabetes. Protocol for discontinuation/ continuation of medications ramon procedure discussed. All questions answered. I have spent greater than 30 minutes on patient care today. Dr Reynaga was available by phone for the evaluation of this patient. The time was used to review the medical records including relevant urine studies and Prescription history (MAPs), review of the available imaging, evaluation and examination of the patient, coordination of care with the medical staff and if applicable referring physicians, as well as creation of the medical record - Pain Location Lower Back Non-Pharmacological Interventions: Darkened Room, Distraction Pharmacological Interventions: Discuss Pain Med Options PQRS Narrative: Blood Pressure [Supine] 106/69 Blood Pressure 141/81 Pain Intensity [Lower Back] 6 Pain Intensity 9 Pain Scale Used Numeric (1 - 10) Scale Used Numeric (1 - 10) Home Medications: Ambulatory Orders Acetaminophen Tab [Tylenol Tab] 1,000 mg PO Q6HR PRN 09/15/23 Ergocalciferol (Vitamin D2) [Drisdol (50,000 Iu)] 1,250 mcg PO MO 09/15/23 Ferrous Sulfate [Feosol] 325 mg PO DAILY 09/15/23 diphenhydrAMINE [Benadryl] 50 mg PO BID 09/15/23 norethindrone-e.estradioL-iron [Blisovi Fe 1-20 Tablet] 1 tab PO DAILY 09/15/23 predniSONE 10 mg PO DAILY 12 Days #24 tab 09/16/23 traMADol HCL/ACETAMINOPHEN [Ultracet 37.5-325] 1 tab PO Q4HR PRN 3 Days #18 tab 09/16/23 Controlled Substance Measures - Controlled Substance Measures Is patient prescribed a controlled substance at discharge?: No
[2023-09-16] MEDS: SODIUM CHLORIDE 0.9% 1,000 ML IV SCH (18:23)
[2023-09-17] MEDS: HYDROcodone/APAP 5-325MG 1 EACH TAB PO PRN ×3 (02:18→14:19)
[2023-09-17] MEDS: SODIUM CHLORIDE 0.9% 1,000 ML IV SCH (07:35)
[2023-09-17] MEDS: NICOTINE 14MG/24HR PATCH TRANSDERM SCH (07:35)
[2023-09-17] MEDS ORDERED: IV FLUID CONTINUATION 900 ML IV ONE (09:48)
--- NOTE | 2023-09-17 09:58 | P.DS ---
Providers Date of admission: 09/15/23 11:22 Attending physician: Ramesh Tomlinson Primary care physician: [facility] Hospital Course: The patient presented on the day of admission as per her H&P. She had severe exacerbation of her low back pain. She had evaluation was not having any evidence of cauda equina syndrome or acute neurologic change. She has long-term back pain for the past 8 years and had acute worsening over the past few months and presented to the hospital. I attempted to see her at bedside today but she is down stairs for her epidural steroid injection. This was a plan for her and I think this is appropriate given her pain Physical Exam is deferred as she is down stairs for her epidural steroid injection currently Hospital Course The patient has acute on chronic low back pain. She has been trying to establish pain management as an outpatient over the past several months but has not been able to converse that thus far. She had imaging and evaluation and does not have any evidence of cauda equina syndrome or any significant instability or stenosis to recommend any surgical intervention. I do not plan any further surgical treatment or imaging for her spine at this point. I think the patient should continue treatment with her primary care physician as well as pain management and interventional pain management. When she is home she can continue outpatient management with her primary service and pain management service. She is getting an epidural steroid injection today and it is okay for her to discharge when she is cleared from postanesthesia care. I think they are in good stable condition for discharge today When she is cleared from postanesthesia care unit. They will be sent home with appropriate prescriptions With tapering oral steroid and pain control. I answered their questions to the best of my ability in a language that they can understand and they are agreeable with the plan. They will follow up as directed. Patient Condition at Discharge: Fair Plan - Discharge Summary Discharge Rx Participant: Yes New Discharge Prescriptions: New predniSONE 10 mg PO DAILY 12 Days #24 tab traMADol HCL/ACETAMINOPHEN [Ultracet 37.5-325] 1 tab PO Q4HR PRN 3 Days #18 tab PRN Reason: Pain No Action diphenhydrAMINE [Benadryl] 50 mg PO BID Ferrous Sulfate [Feosol] 325 mg PO DAILY Acetaminophen Tab [Tylenol Tab] 1,000 mg PO Q6HR PRN PRN Reason: Pain norethindrone-e.estradioL-iron [Blisovi Fe 1-20 Tablet] 1 tab PO DAILY Ergocalciferol (Vitamin D2) [Drisdol (50,000 Iu)] 1,250 mcg PO MO Discharge Medication List Acetaminophen Tab [Tylenol Tab] 1,000 mg PO Q6HR PRN 09/15/23 [History] Ergocalciferol (Vitamin D2) [Drisdol (50,000 Iu)] 1,250 mcg PO MO 09/15/23 [History] Ferrous Sulfate [Feosol] 325 mg PO DAILY 09/15/23 [History] diphenhydrAMINE [Benadryl] 50 mg PO BID 09/15/23 [History] norethindrone-e.estradioL-iron [Blisovi Fe 1-20 Tablet] 1 tab PO DAILY 09/15/23 [History] predniSONE 10 mg PO DAILY 12 Days #24 tab 09/16/23 [Rx] traMADol HCL/ACETAMINOPHEN [Ultracet 37.5-325] 1 tab PO Q4HR PRN 3 Days #18 tab 09/16/23 [Rx] Follow up Appointment(s)/Referral(s): Jose Alfredo Encarnacion PAC [[employer]] - As Needed (Patient may follow-up with Jose Alfredo Encarnacion PA-C or Dr. Donnell Tomlinson at [facility] on an as needed basis following discharge. ) Gabriella Cabrera MD [Primary Care Provider] - 09/23/23 11:00 am Discharge Disposition: HOME SELF-CARE
[2023-09-17] MEDS ORDERED: MIDAZOLAM 2 MG/2 ML VIAL IVP ONE (10:05)
[2023-09-17] MEDS ORDERED: IOPAMIDOL M200 10 ML VIAL ONE (10:28)
[2023-09-17] MEDS ORDERED: methylPREDNISolone ACETATE 80 MG/ML 1 ML VIAL ONE (10:28)
--- NOTE | 2023-09-17 10:37 | P.PCN ---
Date of Procedure: 09/17/23 Procedure(s) Performed: PREOPERATIVE DIAGNOSIS: 1-Lumbar radiculopathy . 2-lumbar degenerative disc disease. 3-lumbar spondylosis with lumbar facet arthropathy without myelopathy POSTOPERATIVE DIAGNOSIS: 1-lumbar radiculopathy. 2-lumbar degenerative disc disease. 3-lumbar spondylosis with facet arthropathy without myelopathy PROCEDURE 1. Transforaminal epidural steroid injection under fluoroscopic guidance at right L5-S1 level. (Fluoroscopy images stored on file in the radiology Department ) 2. Lumbar epidurogram . ANESTHESIA: Local with 1% lidocaine 3 ml. EBL: Minimal PROCEDURE INDICATION: The patient with low back pain and radiculopathy symptoms unresponsive to conservative treatment. PROCEDURE DESCRIPTION / TECHNIQUE: The patient was seen and identified in the preoperative area. Risks, benefits, complications, and alternatives were discussed with the patient. The patient agreed to proceed with the procedure and signed the consent. IV was started, and vital signs were stable. Patient was taken to the OR and time out was completed. The patient was placed in the prone position on procedure table and a pillow was placed under the abdomen to reduce lumbar lordosis. The lumbosacral area was prepped and draped in the usual sterile fashion. Critical pause was taken. Vital signs were closely monitored during the procedure. Using oblique fluoroscopy, the chin of the ``Oracio dog at right L5-S1 level was identified, and the skin and deeper tissues just below was localized with 1% lidocaine. Subsequently, a 22-gauge 5-inch spinal needle was advanced under a tunneled view fluoroscopic guidance just underneath the chin of the ``Oracio dog at the right L5-S1 Under lateral fluoroscopy, the needle was then advanced to the posterior border of the interforaminal space. After negative aspiration of CSF and blood and with no paresthesias, 1 mL Isovue 200 contrast dye was injected excellent epidurogram and outlining of the nerve root Subsequently, 3 mL of block solution containing 80 mg Depo-Medrol and 2 mL of 0.9% normal saline PF was injected. Needle was removed . At the end of the procedure, skin was cleansed, and bandages were applied. COMPLICATIONS:none DISPOSITION / PLANS: The patient was placed in a supine position and transferred to the recovery area in a stable condition for observation. There was no evidence of lower extremity motor or sensory deficit after the procedure. Patient was discharged from the recovery room after meeting discharge criteria. Home discharge instructions were given to the patient by the staff. The patient was reexamined prior to discharge.
--- NOTE | 2023-09-17 10:59 | FL ---
EXAMINATION TYPE: FL guided pain mgmt statistic DATE OF EXAM: 09/17/2023 HISTORY: Fluoroscopy time Total dose area product (DAP) in uGy*m?, mGy*cm? (or similar): 0.0159 IMPRESSION: 1. Fluoroscopy time.
[2023-09-17 13:27] VITALS: BP 126/85; PULSE 94; RESP 19; TEMP 98.1
== END 2023-09-17 16:46 | disposition home or self-care (01) ==
LOC: EC 08:59 → 6NMEDSUR 11:22 → 4SSUR 18:31
PROVIDERS: ADMIT Orthopaedic Surgery Orthopaedic Surgery of the Spine; ATTEND Orthopaedic Surgery Orthopaedic Surgery of the Spine
DX: M51.16 Intervertebral disc disorders with radiculopathy, lumbar region (principal); M47.26 Other spondylosis with radiculopathy, lumbar region; M48.07 Spinal stenosis, lumbosacral region; M62.830 Muscle spasm of back; K21.9 Gastro-esophageal reflux disease without esophagitis; F41.9 Anxiety disorder, unspecified; F32.9 Major depressive disorder, single episode, unspecified; F17.200 Nicotine dependence, unspecified, uncomplicated; E66.9 Obesity, unspecified; Z68.41 Body mass index [BMI] 40.0-44.9, adult; Z98.891 History of uterine scar from previous surgery; Z88.6 Allergy status to analgesic agent; Z88.1 Allergy status to other antibiotic agents; Z88.5 Allergy status to narcotic agent
CPT/HCPCS: 96376 ×3; 96374; 99285; 36415; 80048; 85025; 85610; 85730; 72131; 72148; 64483; G0378 ×4; S4990; J2250; J1885 ×2

== ENCOUNTER → 2023-10-06 | Outpatient (CLI) | payer OTHER ==
[2023-10-06 12:34] VITALS: BP 162/89; PULSE 98; RESP 16; TEMP 98.6
--- NOTE | 2023-10-06 14:22 | P.PAINPG ---
PQRS Measure Charge Sheet Comment: HISTORY OF PRESENT ILLNESS: A 33 yr old inpatient female presents today w severe and chronic LBP secondary to DDD, spondylosis and facet arthropathy without myelopathy for evaluation s/p R TFESI L5-S1 #1. Pt states she experienced 0% pain relief s/p procedure. Pt states pain level is provoked at 8/10 in intensity, constant, localized in the R lower lumbar spine, predominantly axial, achy in character w occasional shooting pain towards the BLEs. Pain is provoked by heat, weight bearing activities. Pain is alleviated by PT in 2018, medications, topical, ice, massage over the area, reclining, repositioning and rest. Oswestry axial pain score of 27. PMH: OA, GERD, Possible Sleep Apnea, MDD/ Anxiety PSH: Section (2014), Tonsillectomy, Abd Exploratory Laparoscopy, D &C (2021), R TFESI L5-S1 #1 SH: Daily tobacco use, No ETOH abuse, No illicit drug use. FH: Fa- CKD, Liver Disease. All: See list Meds: See list REVIEW OF ORGAN SYSTEMS: CONSTITUTIONAL: No fevers or chills. No recent weight loss. NEUROLOGICAL: + numbness and tingling along the distal extremities. No seizure disorders or headaches. MUSCULOSKELETAL: + pain PSYCHIATRIC: Denies current depression or suicidal thoughts. Physical Examinations : Constitutional : Cooperative , not in acute distress . Neurologic : Cranial nerve II to XII intact. No focal neurological deficits. Psychiatric : alert & oriented x 3. Matching mood & appropriate affect. Judgment & insight intact. Musculoskeletal : Cervical Spine Motor strength in the deltoid and b iceps: Normal right side. Normal Left side Motor strength biceps and the wrist extensors: Normal right side . Normal left side Motor strength in the triceps muscle: Normal right side. Normal left side Deep tendon reflexes: Normal at the biceps. Normal at Brachioradialis. Normal at triceps Vertebral body tenderness to deep palpation over Cervical facet loading test: positive bilaterally Spurling test: positive bilaterally Neck distraction test: positive bilaterally Becka sign: positive bilaterally Lumbar spine Motor strength lower extremities ,thigh and legs 5/5 Right side , 5/5 Left side Deep tendon reflexes : Normal Knee Jerk. Normal Ankle Jerk Vertebral body tenderness over L5 Sloan Test positive over R L5-S1 Lumbar facet Loading Test: positive Ri ght / positive Left Range of motion of the lumbar spine Flexion 30 degrees, extension 10 degrees Straight Leg Raise test: Left/ Right positive at degree Armida test: positive right / positive left. Severe tenderness over the Sacroiliac joint on the Right / Left sides Gaenslen test: positive bilaterally Seated flexion test: positive bilaterally. Sacral spine : Severe tenderness over the Sacroiliac joint: right side / left side Range of motion: Flexion of the lumbar spine <60 degrees Range of motion: Extension of the lumbar spine <20 degrees Gaenslen's Test positive Armida test: positive right side / left side Thigh Thrust Test Sacral Thrust Test Imaging: CT non lumbar spine from 09/15/23 reviewed Assessment/ Plan : Lumbar DDD Recommendation of PT x 6 wks M51.36. RTC in 6 wks for a re evaluation. All questions answered. I have spent greater than 30 minutes on patient care today. Dr Reynaga was available by phone for the evaluation of this patient. The time was used to review the medical records including relevant urine studies and Prescription history (MAPs), review of the available imaging, evaluation and examination of the patient, coordination of care with the medical staff and if applicable referring physicians, as well as creation of the medical record Home Medications: Ambulatory Orders Acetaminophen Tab [Tylenol Tab] 1,000 mg PO Q6HR PRN 09/15/23 Ergocalciferol (Vitamin D2) [Drisdol (50,000 Iu)] 1,250 mcg PO MO 09/15/23 Ferrous Sulfate [Feosol] 325 mg PO DAILY 09/15/23 diphenhydrAMINE [Benadryl] 50 mg PO BID 09/15/23 norethindrone-e.estradioL-iron [Blisovi Fe 1-20 Tablet] 1 tab PO DAILY 09/15/23 predniSONE 10 mg PO DAILY 12 Days #24 tab 09/16/23 traMADol HCL/ACETAMINOPHEN [Ultracet 37.5-325] 1 tab PO Q4HR PRN 3 Days #18 tab 09/16/23 Controlled Substance Measures - Controlled Substance Measures Is patient prescribed a controlled substance at discharge?: No
== END ==
LOC: PNWHC3 09:11
PROVIDERS: ATTEND Specialist
DX: M51.37 Other intervertebral disc degeneration, lumbosacral region (principal); M47.817 Spondylosis without myelopathy or radiculopathy, lumbosacral region; M19.90 Unspecified osteoarthritis, unspecified site; K21.9 Gastro-esophageal reflux disease without esophagitis; F41.9 Anxiety disorder, unspecified; F32.9 Major depressive disorder, single episode, unspecified; Z72.0 Tobacco use; Z91.012 Allergy to eggs; Z88.1 Allergy status to other antibiotic agents; Z88.5 Allergy status to narcotic agent; Z88.8 Allergy status to other drugs, medicaments and biological substances; Z88.7 Allergy status to serum and vaccine
CPT/HCPCS: 99211

== ENCOUNTER 2024-04-07 18:48 | Emergency (ER) | payer OTHER ==
[2024-04-07 18:54] VITALS: TEMP 98.3
--- NOTE | 2024-04-07 19:26 | ED ---
Abdominal Pain HPI - General Chief Complaint: Abdominal Pain Stated Complaint: abd pain, nausea, bi leg pain Time Seen by Provider: 04/07/24 19:10 Source: patient Mode of arrival: ambulatory Limitations: no limitations - History of Present Illness Initial Comments: 33-year-old female presenting with chief complaint of abdominal pain. Patient is complaining of right upper quadrant pain. She has had "issues with her gallbladder for a while". States that she was referred to GI but has not been able to get in. She admits to nausea and vomiting. States that she often gets severe cramping pain or sharp pain in the right upper quadrant. Made worse a fter eating. No chest pain or difficulty breathing. No fevers. She also admits to bilateral lower extremity swelling. She does take oral control pills. - Related Data Home Medications Medication Instructions Recorded Confirmed Acetaminophen Tab [Tylenol Tab] 1,000 mg PO Q6HR PRN 09/15/23 10/06/23 Ergocalciferol (Vitamin D2) 1,250 mcg PO MO 09/15/23 10/06/23 [Drisdol (50,000 Iu)] Ferrous Sulfate [Feosol] 325 mg PO DAILY 09/15/23 10/06/23 diphenhydrAMINE [Benadryl] 50 mg PO BID 09/15/23 10/06/23 norethindrone-e.estradioL-iron 1 tab PO DAILY 09/15/23 10/06/23 [Blisovi Fe 1-20 Tablet] Previous Rx's Medication Instructions Recorded predniSONE 10 mg PO DAILY 12 Days #24 tab 09/16/23 traMADol HCL/ACETAMINOPHEN 1 tab PO Q4HR PRN 3 Days #18 tab 09/16/23 [Ultracet 37.5-325] Ondansetron Odt [Zofran Odt] 4 mg PO Q8HR PRN #20 tab 04/07/24 Allergies Allergy/AdvReac Type Severity Reaction Status Date / Time egg Allergy Nausea & Verified 04/07/24 18:55 Vomiting azithromycin AdvReac Nausea & Verified 04/07/24 18:55 Vomiting cyclobenzaprine AdvReac Unknown Verified 04/07/24 18:55 [From Flexeril] oxycodone [From Percocet] AdvReac Nausea & Verified 04/07/24 18:55 Vomiting flu vaccine AdvReac Unknown Uncoded 04/07/24 18:55 Review of Systems ROS Statement: Those systems with pertinent positive or pertinent negative responses have been documented in the HPI. ROS Other: All systems not noted in ROS Statement are negative. Past Medical History Past Medical History: GERD/Reflux Additional Past Medical History / Comment(s): control, boarderline sleep apnea, History of Any Multi-Drug Resistant Organisms: None Reported Past Surgical History: Section, Tonsillectomy Additional Past Surgical History / Comment(s): D & C, Exploritoty surgery to check ovaries, top dentures, Past Anesthesia/Blood Transfusion Reactions: No Reported Reaction Past Psychological History: Anxiety, Depression Smoking Status: Current every day smoker Past Alcohol Use History: None Reported Past Drug Use History: None Reported General Exam Limitations: no limitations General appearance: alert, in no apparent distress Head exam: Present: atraumatic, normocephalic Eye exam: Present: normal appearance, EOMI Neck exam: Present: normal inspection. Absent: meningismus Respiratory exam: Absent: respiratory distress Cardiovascular Exam: Present: regular rate GI/Abdominal exam: Present: soft, tenderness. Absent: distended, guarding, rebound, rigid Neurological exam: Present: alert, oriented X3 Psychiatric exam: Present: normal affect, normal mood Skin exam: Present: warm, dry Course Vital Signs 04/07/24 04/07/24 04/07/24 18:50 20:29 22:54 Temperature 98.3 F Pulse Rate 97 89 80 Respiratory 17 18 18 Rate Blood Pressure 110/73 117/72 121/79 O2 Sat by Pulse 98 98 99 Oximetry Medical Decision Making - Medical Decision Making Was pt. sent in by a medical professional or institution (, PA, OYSTER SHUCKER, urgent care, hospital, or fci...) When possible be specific @ -No Did you speak to anyone other than the patient for history (EMS, parent, family, police, friend...)? What history was obtained from this source @ -No Did you review nursing and triage notes (agree or disagree)? Why? @ -I reviewed and agree with nursing and triage notes Were old charts reviewed (outside hosp., previous admission, EMS record, old EKG, old radiological studies, urgent care reports/EKG's, fci records)? Report findings @ -No old charts were reviewed Differential Diagnosis (chest pain, altered mental status, abdominal pain women, abdominal pain men, vaginal bleeding, weakness, fever, dyspnea, syncope, headache, dizziness, GI bleed, back pain, seizure, CVA, palpatations, mental health, musculoskeletal)? @ -[facility] Differential Abdominal Pain Women: Appendicitis, Cholecystitis, diverticulosis, ischemic bowel, pancreatitis, hepatitis, UTI, gastroenteritis, AAA, incarcerated hernia, bowel obstruction, constipation, inflammatory bowel, hepatitis, peptic ulcer disease, splenic infarction, perforated viscus, vulvitis, ovarian torsion, PID, kidney stone, placenta abruption... This is not meant to be an all-inclusive list EKG interpreted by me (3pts min.). @ -EKG shows sinus rhythm regular rate 87. GA interval 128. QRS 88. QT 347. QTc 392. X-rays interpreted by me (1pt min.). @ -None done CT interpreted by me (1pt min.). @ -None done U/S interpreted by me (1pt. min.). @ -Abdominal ultrasound shows hepatomegaly with diffusely coarsened echotexture suggesting hepatocellular disease, commonly steatosis. Pancreatic tail is obscured. Questionable 0.5 cm focus along the gallbladder wall, could represent adherent calculus or polyp, versus fold of the gallbladder wall. A 6-month follow-up ultrasound may be obtained. No gallstones are otherwise demonstrated, there are no secondary signs to suggest acute cholecystitis. No biliary duct dilation Extremity ultrasound is negative for DVT bilaterally What testing was considered but not performed or refused? (CT, X-rays, U/S, labs)? Why? @ -None What meds were considered but not given or refused? Why? @ -None Did you discuss the management of the patient with other professionals (professionals i.e. , PA, OYSTER SHUCKER, lab, RT, psych nurse, social worker school, robotic maintenance technician, teacher, chief procurement officer, case manager specialist)? Give summary @ -No Was smoking cessation discussed for >3mins.? @ -No Was critical care preformed (if so, how long)? @ -No Were there social determinants of health that impacted care today? How? (Homelessness, low income, unemployed, alcoholism, drug addiction, transportation, low edu. Level, literacy, decrease access to med. care, residential, rehab)? @ -No Was there de-escalation of care discussed even if they declined (Discuss DNR or withdrawal of care, Hospice)? DNR status @ -No What co-morbidities impacted this encounter? (DM, HTN, Smoking, COPD, CAD, Cancer, CVA, ARF, Chemo, Hep., AIDS, mental health diagnosis, sleep apnea, morbid obesity)? @ -None Was patient admitted / discharged? Hospital course, mention meds given and route, prescriptions, significant lab abnormalities, going to OR and other pertinent info. @ -33-year-old female presenting with chief complaint of right upper quadrant pain. Has been ongoing for weeks. Admits to nausea and vomiting. History and physical exam are conducted. There is right upper quadrant tenderness. WBC 16.8. Negative troponin EKG shows no acute findings. Amylase and lipase are WNL. Urine shows contamination. Negative hCG. Ultrasound shows evidence of possible polyp to the gallbladder, no evidence of stones or acute cholecystitis. She was also having some swelling to the bilateral lower extremities. Ultrasound is negative for DVT. patient is educated on today's findings. She is provided with general surgery follow-up. Discharged home. Follow-up with PCP. Report back to ER with any new or worsening symptoms. Discussed return parameters and answered all questions. Patient conveyed verbal understanding and agreed to the plan. I discussed this case in detail with my attending Dr. Moncada Undiagnosed new problem with uncertain prognosis? @ -No Drug Therapy requiring intensive monitoring for toxicity (Heparin, Nitro, Insul in, Cardizem)? @ -No Were any procedures done? @ -No Diagnosis/symptom? @ -Biliary colic Acute, or Chronic, or Acute on Chronic? @ -Acute Uncomplicated (without systemic symptoms) or Complicated (systemic symptoms)? @ -Uncomplicated Side effects of treatment? @ -No Exacerbation, Progression, or Severe Exacerbation? @ -No Poses a threat to life or bodily function? How? (Chest pain, [place], [place], pneumonia, PE, COPD, DKA, ARF, appy, cholecystitis, CVA, Diverticulitis, Homicidal, Suicidal, threat to staff... and all critical care pts) @ -Low likelihood - Lab Data Result diagrams: 04/07/24 19:40 04/07/24 19:40 Lab Results 04/07/24 04/07/24 04/07/24 Range/Units 19:40 19:40 19:40 WBC 16.8 H (3.8-10.6) k/uL RBC 4.45 (3.80-5.40) m/uL Hgb 12.6 (11.4-16.0) gm/dL Hct 39.1 (34.0-46.0) % MCV 87.8 (80.0-100.0) fL MCH 28.3 (25.0-35.0) pg MCHC 32.2 (31.0-37.0) g/dL RDW 13.4 (11.5-15.5) % Plt Count 410 (150-450) k/uL MPV 8.6 Neutrophils % 70 % Lymphocytes % 21 % Monocytes % 5 % Eosinophils % 3 % Basophils % 1 % Neutrophils # 11.7 H (1.3-7.7) k/uL Lymphocytes # 3.5 (1.0-4.8) k/uL Monocytes # 0.8 (0-1.0) k/uL Eosinophils # 0.5 (0-0.7) k/uL Basophils # 0.1 (0-0.2) k/uL Sodium 138 (137-145) mmol/L Potassium 3.9 (3.5-5.1) mmol/L Chloride 107 (98-107) mmol/L Carbon Dioxide 26 (22-30) mmol/L Anion Gap 5 mmol/L BUN 7 (7-17) mg/dL Creatinine 0.62 (0.52-1.04) mg/dL Est GFR (CKD-EPI)AfAm >90 (>60 ml/min/1.73 sqM) Est GFR (CKD-EPI)NonAf >90 (>60 ml/min/1.73 sqM) Glucose 128 H (74-99) mg/dL Plasma Lactic Acid Teto 1.1 (0.7-2.0) mmol/L Calcium 8.5 (8.4-10.2) mg/dL Total Bilirubin 0.4 (0.2-1.3) mg/dL AST 28 (14-36) U/L ALT 22 (4-34) U/L Alkaline Phosphatase 50 (38-126) U/L Troponin I (0.000-0.034) ng/mL Total Protein 5.9 L (6.3-8.2) g/dL Albumin 3.6 (3.5-5.0) g/dL Amylase 39 (30-110) U/L Lipase 102 (23-300) U/L Urine Color Urine Appearance (Clear) Urine pH (5.0-8.0) Ur Specific [place] (1.001-1.035) Urine Protein (Negative) Urine Glucose (UA) (Negative) Urine Ketones (Negative) Urine Blood (Negative) Urine Nitrite (Negative) Urine Bilirubin (Negative) Urine Urobilinogen (<2.0) mg/dL Ur Leukocyte Esterase (Negative) Urine RBC (0-5) /hpf Urine WBC (0-5) /hpf Ur Squamous Epith Cells (0-4) /hpf Urine Bacteria (None) /hpf Hyaline Casts (0-2) /lpf Urine Mucus (None) /hpf Urine HCG, Qual (Not Detectd) 04/07/24 04/07/24 04/07/24 Range/Units 19:40 21:50 21:50 WBC (3.8-10.6) k/uL RBC (3.80-5.40) m/uL Hgb (11.4-16.0) gm/dL Hct (34.0-46.0) % MCV (80.0-100.0) fL MCH (25.0-35.0) pg MCHC (31.0-37.0) g/dL RDW (11.5-15.5) % Plt Count (150-450) k/uL MPV Neutrophils % % Lymphocytes % % Monocytes % % Eosinophils % % Basophils % % Neutrophils # (1.3-7.7) k/uL Lymphocytes # (1.0-4.8) k/uL Monocytes # (0-1.0) k/uL Eosinophils # (0-0.7) k/uL Basophils # (0-0.2) k/uL Sodium (137-145) mmol/L Potassium (3.5-5.1) mmol/L Chloride (98-107) mmol/L Carbon Dioxide (22-30) mmol/L Anion Gap mmol/L BUN (7-17) mg/dL Creatinine (0.52-1.04) mg/dL Est GFR (CKD-EPI)AfAm (>60 ml/min/1.73 sqM) Est GFR (CKD-EPI)NonAf (>60 ml/min/1.73 sqM) Glucose (74-99) mg/dL Plasma Lactic Acid Teto (0.7-2.0) mmol/L Calcium (8.4-10.2) mg/dL Total Bilirubin (0.2-1.3) mg/dL AST (14-36) U/L ALT (4-34) U/L Alkaline Phosphatase (38-126) U/L Troponin I <0.012 (0.000-0.034) ng/mL Total Protein (6.3-8.2) g/dL Albumin (3.5-5.0) g/dL Amylase (30-110) U/L Lipase (23-300) U/L Urine Color Yellow Urine Appearance Cloudy H (Clear) Urine pH 6.0 (5.0-8.0) Ur Specific [place] 1.030 (1.001-1.035) Urine Protein 1+ H (Negative) Urine Glucose (UA) Negative (Negative) Urine Ketones Negative (Negative) Urine Blood Negative (Negative) Urine Nitrite Negative (Negative) Urine Bilirubin Negative (Negative) Urine Urobilinogen 2.0 (<2.0) mg/dL Ur Leukocyte Esterase Large H (Negative) Urine RBC 1 (0-5) /hpf Urine WBC 17 H (0-5) /hpf Ur Squamous Epith Cells 16 H (0-4) /hpf Urine Bacteria Rare H (None) /hpf Hyaline Casts 6 H (0-2) /lpf Urine Mucus Many H (None) /hpf Urine HCG, Qual Not Detected (Not Detectd) Disposition Clinical Impression: Biliary colic Disposition: HOME SELF-CARE Condition: Fair Instructions (If sedation given, give patient instructions): Biliary Colic (ED), Low Fat Diet (ED), Abdominal Pain (ED) Additional Instructions: Follow-up with PCP and surgeon. Report back to ER with any new or worsening symptoms. Prescriptions: Ondansetron Odt [Zofran Odt] 4 mg PO Q8HR PRN #20 tab PRN Reason: nausea Is patient prescribed a controlled substance at d/c from ED?: No Referrals: Leonardo Ahuja MD [Primary Care Provider] - 1-2 days Mihaela Rivas MD [STAFF PHYSICIAN] - 1-2 days Time of Disposition: 22:45
[2024-04-07] MEDS: SODIUM CHLORIDE 0.9% 1,000 ML IV STA (19:32)
[2024-04-07] MEDS: MORPHINE SULFATE 4 MG/ML SYRINGE IVP STA (19:32)
[2024-04-07] MEDS: ONDANSETRON 4 MG/2 ML VIAL IVP STA (19:32)
[2024-04-07 20:09] LABS: Basophils # (A) 0.1 k/uL (0-0.2); Basophils % (A) 1 %; Eosinophils # (A) 0.5 k/uL (0-0.7); Eosinophils % (A) 3 %; HCT 39.1 % (34.0-46.0); HGB 12.6 gm/dL (11.4-16.0); Lymphocytes # (A) 3.5 k/uL (1.0-4.8); Lymphocytes % (A) 21 %; MCH 28.3 pg (25.0-35.0); MCHC 32.2 g/dL (31.0-37.0); MCV 87.8 fL (80.0-100.0); Mean Platelet Volume 8.6; Monocytes # (A) 0.8 k/uL (0-1.0); Monocytes % (A) 5 %; Neutrophils # (A) 11.7 k/uL (1.3-7.7); Neutrophils % (A) 70 %; Platelet Count 410 k/uL (150-450); RBC 4.45 m/uL (3.80-5.40); RDW 13.4 % (11.5-15.5); WBC 16.8 k/uL (3.8-10.6)
[2024-04-07 20:20] LABS: ALT 22 U/L (4-34); AST 28 U/L (14-36); African American GFR (CKD) >90 (>60 ml/min/1.73 sqM); Albumin 3.6 g/dL (3.5-5.0); Alkaline Phosphatase 50 U/L (38-126); Amylase 39 U/L (30-110); Anion Gap 5 mmol/L; Blood Urea Nitrogen 7 mg/dL (7-17); Calcium 8.5 mg/dL (8.4-10.2); Carbon Dioxide 26 mmol/L (22-30); Chloride 107 mmol/L (98-107); Glucose 128 mg/dL (74-99); Lipase 102 U/L (23-300); Non-African American GFR(CKD) >90 (>60 ml/min/1.73 sqM); Potassium 3.9 mmol/L (3.5-5.1); Sodium 138 mmol/L (137-145); Total Bilirubin 0.4 mg/dL (0.2-1.3); Total Protein 5.9 g/dL (6.3-8.2)
[2024-04-07 20:31] VITALS: RESP 18
--- NOTE | 2024-04-07 20:53 | US ---
EXAMINATION TYPE: US abdomen limited DATE OF EXAM: 04/07/2024 COMPARISON: NONE CLINICAL INDICATION: Female, 33 years old with history of RUQ pain; RUQ pain x 1 year. Patient states it has gotten worse x a couple weeks. TECHNIQUE: Multiple sonographic images of the right upper quadrant are obtained. FINDINGS: EXAM MEASUREMENTS: Liver Length: 19.6 cm Gallbladder Wall: 0.21 cm CBD: 0.38 cm Right Kidney: 11.8 x 5.4 x 4.4 cm STAKING PRESS OPERATOR NOTES: Exam is limited due to gas. Pancreas: Portions seen appear wnl, tail is obscured. Liver: Appears enlarged and with coarse echotexture Gallbladder: Questionable-hyperechoic area that is attached to the gallbladder wall versus fold seen and measures: 0.5 x 0.3 x 0.3 CM without associated color Doppler flow demonstrated Evidence for sonographic Lopez's sign: No CBD: Appears wnl Right Kidney: No hydronephrosis or masses seen IMPRESSION: 1. Limited study, pancreatic tail is obscured. 2. Hepatomegaly, with diffusely coarsened echotexture suggesting hepatocellular disease, commonly st eatosis. 3. A questionable 0.5 cm focus along the gallbladder wall, could represent adherent calculus or poly p, versus fold of the gallbladder wall. A six-month follow-up ultrasound may be obtained. 4. No gallstones are otherwise demonstrated, and there are no secondary signs to suggest acute marcin cystitis. 5. No biliary duct dilatation.
--- NOTE | 2024-04-07 20:55 | US ---
EXAMINATION TYPE: US venous doppler duplex LE BI DATE OF EXAM: 04/07/2024 8:39 PM COMPARISON: NONE CLINICAL INDICATION: Female, 33 years old with history of swelling; No hx of DVT. Swelling. Patient d oes not take blood thinners. SIDE PERFORMED: Bilateral TECHNIQUE: The lower extremity deep venous system is examined on both sides utilizing real time line ar array sonography with graded compression, doppler sonography and color-flow sonography. VESSELS IMAGED: Common Femoral Vein Deep Femoral Vein Greater Saphenous Vein * Femoral Vein Popliteal Vein Small Saphenous Vein * Proximal Calf Veins (* superficial vessels) FINDINGS: Venous structures fill with normal color signal, there are appropriate venous waveforms and augmentat ion demonstrated without evidence of filling defect or noncompressibility to suggest DVT. Right Leg: No evidence of DVT. Left Leg: No evidence of DVT. IMPRESSION: No evidence of DVT in either lower extremity.
[2024-04-07] MEDS: KETOROLAC 15 MG/ML 1 ML VIAL IVP STA (22:17)
[2024-04-07 22:31] LABS: Appearance,Urine Cloudy (Clear); Bacteria,Urine Rare /hpf; Bilirubin,Urine Negative (Negative); Blood,Urine Negative (Negative); Color,Urine Yellow; Glucose,Urine (UA) Negative (Negative); Hyaline Casts,Urine 6 /lpf (0-2); Ketones,Urine Negative (Negative); Leukocyte Esterase,Urine Large (Negative); Mucus,Urine Many /hpf; Nitrite,Urine Negative (Negative); Protein,Urine 1+ (Negative); RBC,Urine 1 /hpf (0-5); Squamous Epithelial Cell,Urine 16 /hpf (0-4); WBC,Urine 17 /hpf (0-5)
[2024-04-07] MEDS ORDERED: ACET/COD 300 MG/30 MG STARTER PACK 6 TAB BTL PO STA (22:45)
[2024-04-07 22:55] VITALS: BP 121/79; PULSE 80
== END 2024-04-07 22:59 | disposition home or self-care (01) ==
LOC: EC 18:48
DX: K80.50 Calculus of bile duct without cholangitis or cholecystitis without obstruction (principal); F17.200 Nicotine dependence, unspecified, uncomplicated; Z91.012 Allergy to eggs; Z88.1 Allergy status to other antibiotic agents; Z88.5 Allergy status to narcotic agent; Z88.8 Allergy status to other drugs, medicaments and biological substances
CPT/HCPCS: 36415; 93005; 80053; 82150; 83605; 83690; 84484; 85025; 81001; 81025; 76705; 93970; 99284; 96374; 96375 ×2; 96361; J2270; J2405; J1885

== ENCOUNTER 2024-09-06 16:46 | Emergency (ER) | payer OTHER ==
[2024-09-06 17:04] VITALS: RESP 18
[2024-09-06] MEDS: ACETAMINOPHEN TAB 500 MG TAB PO STA (17:27)
[2024-09-06] MEDS: SODIUM CHLORIDE 0.9% 1,000 ML IV ONE (17:32)
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
[2024-09-06 17:41] LABS: Basophils # (A) 0.1 k/uL (0-0.2); Basophils % (A) 0 %; Eosinophils # (A) 0.3 k/uL (0-0.7); Eosinophils % (A) 2 %; HCT 39.3 % (34.0-46.0); HGB 12.8 gm/dL (11.4-16.0); Lymphocytes # (A) 3.4 k/uL (1.0-4.8); Lymphocytes % (A) 23 %; MCH 26.9 pg (25.0-35.0); MCHC 32.6 g/dL (31.0-37.0); MCV 82.7 fL (80.0-100.0); Mean Platelet Volume 7.1; Monocytes # (A) 0.8 k/uL (0-1.0); Monocytes % (A) 5 %; Neutrophils # (A) 10.3 k/uL (1.3-7.7); Neutrophils % (A) 69 %; Platelet Count 398 k/uL (150-450); RBC 4.76 m/uL (3.80-5.40); RDW 14.3 % (11.5-15.5)
[2024-09-06 17:43] LABS: Appearance,Urine Cloudy (Clear); Bacteria,Urine Rare /hpf; Bilirubin,Urine Negative (Negative); Blood,Urine Negative (Negative); Color,Urine Colorless; Glucose,Urine (UA) Negative (Negative); Ketones,Urine Negative (Negative); Leukocyte Esterase,Urine Large (Negative); Mucus,Urine Rare /hpf; Nitrite,Urine Negative (Negative); Protein,Urine Negative (Negative); RBC,Urine 5 /hpf (0-5); Specific Gravity,Urine 1.007 (1.001-1.035); Squamous Epithelial Cell,Urine 6 /hpf (0-4); Urobilinogen,Urine <2.0 mg/dL (<2.0); WBC,Urine 9 /hpf (0-5)
[2024-09-06 18:01] LABS: ALT 14 U/L (4-34); AST 21 U/L (14-36); African American GFR (CKD) >90 (>60 ml/min/1.73 sqM); Albumin 4.1 g/dL (3.5-5.0); Alkaline Phosphatase 60 U/L (38-126); Anion Gap 8 mmol/L; Blood Urea Nitrogen 7 mg/dL (7-17); Calcium 9.1 mg/dL (8.4-10.2); Carbon Dioxide 23 mmol/L (22-30); Chloride 104 mmol/L (98-107); Glucose 90 mg/dL (74-99); Non-African American GFR(CKD) >90 (>60 ml/min/1.73 sqM); Potassium 4.2 mmol/L (3.5-5.1); Sodium 135 mmol/L (137-145); Total Bilirubin 0.3 mg/dL (0.2-1.3)
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
[2024-09-06 18:51] LABS: HCG,Quantitative Serum 52765.5 mIU/mL
[2024-09-06 19:13] VITALS: BP 112/72; PULSE 80; TEMP 98.4
== END 2024-09-06 19:46 | disposition home or self-care (01) ==
LOC: EC 16:46
DX: O99.891 Other specified diseases and conditions complicating pregnancy (principal); O20.0 Threatened abortion; O99.331 Smoking (tobacco) complicating pregnancy, first trimester; F17.200 Nicotine dependence, unspecified, uncomplicated; Z88.8 Allergy status to other drugs, medicaments and biological substances; Z91.012 Allergy to eggs; Z88.1 Allergy status to other antibiotic agents; Z88.7 Allergy status to serum and vaccine; Z3A.09 9 weeks gestation of pregnancy; V89.2XXA Person injured in unspecified motor-vehicle accident, traffic, initial encounter
CPT/HCPCS: 36415; 76801; 80053; 81001; 84702; 85025; 96360; 99284

== ENCOUNTER 2024-11-02 08:36 | Emergency (ER) | payer OTHER ==
--- NOTE | 2024-11-02 09:08 | XR ---
EXAMINATION TYPE: XR chest 2V DATE OF EXAM: 11/02/2024 9:04 AM COMPARISON: None TECHNIQUE: XR chest 2V Frontal and lateral views of the chest. CLINICAL INDICATION:Female, 34 years old with history of Cough, fever; FINDINGS: Lungs/Pleura: There is no evidence of pleural effusion, focal consolidation, or pneumothorax. Pulmonary vascularity: Unremarkable. Heart/mediastinum: Cardiomediastinal silhouette is unremarkable. Musculoskeletal: No acute osseous pathology. IMPRESSION: No acute cardiopulmonary disease/process. [facility], , 11/02/2024 9:05 AM
--- NOTE | 2024-11-02 09:09 | ED ---
SOB HPI - General Chief Complaint: Shortness of Breath Stated Complaint: burning in chest, 17 wk preg Time Seen by Provider: 11/02/24 08:42 Source: patient, RN notes reviewed Mode of arrival: ambulatory Limitations: no limitations - History of Present Illness Initial Comments: 34-year-old female presents emergency department chief complaint of cough [place] estion fever. 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 Patient states she is 17 weeks . She denies any vaginal bleeding or vaginal discharge she states she has minimal urinary symptoms. Patient states cough is mildly productive, she has had some posttussive emesis. - Related Data Home Medications Medication Instructions Recorded Confirmed Acetaminophen Tab [Tylenol Tab] 1,000 mg PO Q6HR PRN 09/15/23 10/06/23 Ergocalciferol (Vitamin D2) 1,250 mcg PO MO 09/15/23 10/06/23 [Drisdol (50,000 Iu)] Ferrous Sulfate [Feosol] 325 mg PO DAILY 09/15/23 10/06/23 diphenhydrAMINE [Benadryl] 50 mg PO BID 09/15/23 10/06/23 norethindrone-e.estradioL-iron 1 tab PO DAILY 09/15/23 10/06/23 [Blisovi Fe 1-20 Tablet] Previous Rx's Medication Instructions Recorded predniSONE 10 mg PO DAILY 12 Days #24 tab 09/16/23 traMADol HCL/ACETAMINOPHEN 1 tab PO Q4HR PRN 3 Days #18 tab 09/16/23 [Ultracet 37.5-325] Ondansetron Odt [Zofran Odt] 4 mg PO Q8HR PRN #20 tab 04/07/24 Cephalexin [Keflex] 500 mg PO Q12HR 5 Days #10 cap 09/06/24 Cephalexin [Keflex] 500 mg PO Q8HR #21 cap 11/02/24 Allergies Allergy/AdvReac Type Severity Reaction Status Date / Time egg Allergy Nausea & Verified 11/02/24 08:40 Vomiting azithromycin AdvReac Nausea & Verified 11/02/24 08:40 Vomiting cyclobenzaprine AdvReac Unknown Verified 11/02/24 08:40 [From Flexeril] oxycodone [From Percocet] AdvReac Nausea & Verified 11/02/24 08:40 Vomiting flu vaccine AdvReac Unknown Uncoded 04/07/24 18:55 Review of Systems ROS Statement: Those systems with pertinent positive or pertinent negative responses have been documented in the HPI. ROS Other: All systems not noted in ROS Statement are negative. Past Medical History Past Medical History: GERD/Reflux Additional Past Medical History / Comment(s): boarderline sleep apnea, History of Any Multi-Drug Resistant Organisms: None Reported Past Surgical History: Section, Tonsillectomy Additional Past Surgical History / Comment(s): D & C, Exploritoty surgery to check ovaries, top dentures, Past Anesthesia/Blood Transfusion Reactions: No Reported Reaction Past Psychological History: Anxiety, Depression Smoking Status: Current every day smoker Past Alcohol Use History: None Reported Past Drug Use History: None Reported General Exam Limitations: no limitations General appearance: alert, in no apparent distress Head exam: Present: atraumatic, normocephalic, normal inspection Eye exam: Present: normal appearance, PERRL, EOMI. Absent: scleral icterus, conjunctival injection, periorbital swelling ENT exam: Present: normal exam, normal oropharynx, mucous membranes moist Neck exam: Present: normal inspection, full ROM. Absent: tenderness, meningismus, lymphadenopathy Respiratory exam: Present: normal lung sounds bilaterally. Absent: respiratory distress, wheezes, rales, rhonchi, stridor Cardiovascular Exam: Present: normal rhythm, tachycardia, normal heart sounds. Absent: systolic murmur, diastolic murmur, rubs, gallop, clicks GI/Abdominal exam: Present: soft, normal bowel sounds. Absent: distended, tenderness, guarding, rebound, rigid Course Vital Signs 11/02/24 11/02/24 08:37 09:40 Temperature 99.5 F Pulse Rate 125 H 118 H Respiratory 20 22 Rate Blood Pressure 110/53 O2 Sat by Pulse 100 100 Oximetry Medical Decision Making - Medical Decision Making Was pt. sent in by a medical professional or institution (, PA, QC CHEMIST, urgent care, hospital, or senior living...) When possible be specific @ -No Did you speak to anyone other than the patient for history (EMS, parent, family, police, friend...)? What history was obtained from this source @ -No Did you review nursing and triage notes (agree or disagree)? Why? @ -I reviewed and agree with nursing and triage notes Were old charts reviewed (outside hosp., previous admission, EMS record, old EKG, old radiological studies, urgent care reports/EKG's, senior living records)? Report findings @ -No old charts were reviewed Differential Diagnosis (chest pain, altered mental status, abdominal pain women, abdominal pain men, vaginal bleeding, weakness, fever, dyspnea, syncope, headache, dizziness, GI bleed, back pain, seizure, CVA, palpatations, mental health, musculoskeletal)? @ -COVID 19, RSV, influenza, pneumonia, acute bronchitis, URI, this list is not all inclusive EKG interpreted by me (3pts min.). @ -None X-rays interpreted by me (1pt min.). @ -Chest x-ray shows no acute cardiopulmonary process. CT interpreted by me (1pt min.). @ -None done U/S interpreted by me (1pt. min.). @ -None done What testing was considered but not performed or refused? (CT, X-rays, U/S, labs)? Why? @ -None What meds were considered but not given or refused? Why? @ -None Did you discuss the management of the patient with other professionals (professionals i.e. , PA, QC CHEMIST, lab, RT, psych nurse, social media analyst, cinder pit crane operator, teacher, environmental compliance officer, mattress spring encaser)? Give summary @ -No Was smoking cessation discussed for >3mins.? @ -No Was critical care preformed (if so, how long)? @ -No Were there social determinants of health that impacted care today? How? (Homelessness, low income, unemployed, alcoholism, drug addiction, transportation, low edu. Level, literacy, decrease access to med. care, senior living, rehab)? @ -No Was there de-escalation of care discussed even if they declined (Discuss DNR or withdrawal of care, Hospice)? DNR status @ -No What co-morbidities impacted this encounter? (DM, HTN, Smoking, COPD, CAD, Cancer, CVA, ARF, Chemo, Hep., AIDS, mental health diagnosis, sleep apnea, morbid obesity)? @ -None Was patient admitted / discharged? Hospital course, mention meds given and route, prescriptions, significant lab abnormalities, going to OR and other pertinent info. @ -Discharged patient is found to have an influenza A. Patient still testing positive for COVID-19, patient has evidence of UTI will discharge on oral antibiotics continue antipyretics return transfer discussed. Undiagnosed new problem with uncertain prognosis? @ -No Drug Therapy requiring intensive monitoring for toxicity (Heparin, Nitro, Insulin, Cardizem)? @ -No Were any procedures done? @ -No Diagnosis/symptom? @ -Influenza A, UTI Acute, or Chronic, or Acute on Chronic? @ -Acute Uncomplicated (without systemic symptoms) or Complicated (systemic symptoms)? @ -Uncomplicated Side effects of treatment? @ -No Exacerbation, Progression, or Severe Exacerbation? @ -No Poses a threat to life or bodily function? How? (Chest pain, [place], [place], pneumonia, PE, COPD, DKA, ARF, appy, cholecystitis, CVA, Diverticulitis, Homicidal, Suicidal, threat to staff... and all critical care pts) @ -No - Lab Data Lab Results 11/02/24 11/02/24 Range/Units 08:54 08:59 Urine Color Colorless Urine Appearance Cloudy H (Clear) Urine pH 8.0 (5.0-8.0) Ur Specific [place] 1.005 (1.001-1.035) Urine Protein Negative (Negative) Urine Glucose (UA) Negative (Negative) Urine Ketones Negative (Negative) Urine Blood Negative (Negative) Urine Nitrite Negative (Negative) Urine Bilirubin Negative (Negative) Urine Urobilinogen <2.0 (<2.0) mg/dL Ur Leukocyte Esterase Large H (Negative) Urine RBC 4 (0-5) /hpf Urine WBC 53 H (0-5) /hpf Ur Squamous Epith Cells 3 (0-4) /hpf Urine Bacteria Occasional H (None) /hpf Urine Mucus Rare H (None) /hpf Urine Yeast (Budding) Occasional H (None) /hpf Influenza Type A (PCR) Detected A (Not Detectd) Influenza Type B (PCR) Not Detected (Not Detectd) RSV (PCR) Not Detected (Not Detectd) SARS-CoV-2 (PCR) Detected A (Not Detectd) Disposition Clinical Impression: Influenza A, UTI (urinary tract infection) Disposition: HOME SELF-CARE Condition: Stable Instructions (If sedation given, give patient instructions): Urinary Tract Infection in Women (ED), Influenza (ED) Additional Instructions: Please return to the Emergency Department if symptoms worsen or any other concerns. Prescriptions: Cephalexin [Keflex] 500 mg PO Q8HR #21 cap Is patient prescribed a controlled substance at d/c from ED?: No Referrals: Curt Ni MD [Primary Care Provider] - 1-2 days Time of Disposition: 10:12
[2024-11-02 09:31] LABS: Appearance,Urine Cloudy (Clear); Bacteria,Urine Occasional /hpf; Bilirubin,Urine Negative (Negative); Blood,Urine Negative (Negative); Budding Yeast,Urine Occasional /hpf; Color,Urine Colorless; Glucose,Urine (UA) Negative (Negative); Ketones,Urine Negative (Negative); Leukocyte Esterase,Urine Large (Negative); Mucus,Urine Rare /hpf; Nitrite,Urine Negative (Negative); Protein,Urine Negative (Negative); RBC,Urine 4 /hpf (0-5); Specific Gravity,Urine 1.005 (1.001-1.035); Squamous Epithelial Cell,Urine 3 /hpf (0-4); Urobilinogen,Urine <2.0 mg/dL (<2.0); WBC,Urine 53 /hpf (0-5)
[2024-11-02 09:48] LABS: Influenza A Detected (Not Detectd); Influenza B Not Detected (Not Detectd); RSV Not Detected (Not Detectd)
[2024-11-02 10:29] VITALS: BP 121/61; PULSE 120; RESP 18; TEMP 99.1
== END 2024-11-02 10:32 | disposition home or self-care (01) ==
LOC: EC 08:36
DX: O99.512 Diseases of the respiratory system complicating pregnancy, second trimester (principal); J10.1 Influenza due to other identified influenza virus with other respiratory manifestations; O23.42 Unspecified infection of urinary tract in pregnancy, second trimester; N39.0 Urinary tract infection, site not specified; O99.332 Smoking (tobacco) complicating pregnancy, second trimester; F17.290 Nicotine dependence, other tobacco product, uncomplicated; Z91.012 Allergy to eggs; Z88.7 Allergy status to serum and vaccine; Z88.1 Allergy status to other antibiotic agents; Z88.8 Allergy status to other drugs, medicaments and biological substances; Z3A.17 17 weeks gestation of pregnancy
CPT/HCPCS: 71046; 81001; 87086; 87636; 99285

== ENCOUNTER 2025-03-27 16:46 | Emergency (ER) | payer OTHER ==
[2025-03-27 16:57] VITALS: TEMP 98.1
--- NOTE | 2025-03-27 17:51 | ED ---
General Adult HPI - General Source: patient Mode of arrival: ambulatory Limitations: no limitations <Angela Moura - Last Filed: 03/27/25 17:49> - General Source: patient, RN notes reviewed, old records reviewed Mode of arrival: ambulatory Limitations: no limitations - History of Present Illness -: days(s) Location: head, left, right, lower extremity Radiation: non-radiation Severity scale (1-10): 5 Quality: aching Consistency: constant Improves with: none Worsens with: none Associated Symptoms: denies other symptoms Treatments Prior to Arrival: none <Isrrael Bains - Last Filed: 04/04/25 19:35> - General Chief complaint: Recheck/Abnormal Lab/Rx Stated complaint: post- gretchen leg swelling Time Seen by Provider: 03/27/25 17:49 - History of Present Illness Initial comments: Quick note: 34-year-old female present with chief complaint of lower extremity swelling and headache. Patient had a on the at [facility] with Dr. Matthews. She reports that today when she woke up she noticed some significant lower extremity swelling. She is also admitting to headache. She did have some blurred vision earlier this morning. She does admit to some increased pain near her scar. Her bleeding is lightening up. (Angela Moura) This is a 34 female to ER for lower extremity edema swelling some occasional headaches nausea blurry vision. Significant recent on the 1 week (Isrrael Bains) - Related Data Home Medications Medication Instructions Recorded Confirmed Acetaminophen Tab [Tylenol Tab] 1,000 mg PO Q6HR PRN 09/15/23 10/06/23 Ergocalciferol (Vitamin D2) 1,250 mcg PO MO 09/15/23 10/06/23 [Drisdol (50,000 Iu)] Ferrous Sulfate [Feosol] 325 mg PO DAILY 09/15/23 10/06/23 diphenhydrAMINE [Benadryl] 50 mg PO BID 09/15/23 10/06/23 norethindrone-e.estradioL-iron 1 tab PO DAILY 09/15/23 10/06/23 [Blisovi Fe 1-20 Tablet] Previous Rx's Medication Instructions Recorded predniSONE 10 mg PO DAILY 12 Days #24 tab 09/16/23 traMADol HCL/ACETAMINOPHEN 1 tab PO Q4HR PRN 3 Days #18 tab 09/16/23 [Ultracet 37.5-325] Ondansetron Odt [Zofran Odt] 4 mg PO Q8HR PRN #20 tab 04/07/24 Cephalexin [Keflex] 500 mg PO Q12HR 5 Days #10 cap 09/06/24 Cephalexin [Keflex] 500 mg PO Q8HR #21 cap 11/02/24 Allergies Allergy/AdvReac Type Severity Reaction Status Date / Time egg Allergy Nausea & Verified 03/27/25 16:57 Vomiting azithromycin AdvReac Nausea & Verified 03/27/25 16:57 Vomiting cyclobenzaprine AdvReac Unknown Verified 03/27/25 16:57 [From Flexeril] oxycodone [From Percocet] AdvReac Nausea & Verified 03/27/25 16:57 Vomiting flu vaccine AdvReac Unknown Uncoded 03/27/25 16:57 Review of Systems ROS Other: All systems not noted in ROS Statement are negative. <Angela Moura - Last Filed: 03/27/25 17:49> ROS Other: All systems not noted in ROS Statement are negative. <Isrrael Bains - Last Filed: 04/04/25 19:35> ROS Statement: Those systems with pertinent positive or pertinent negative responses have been documented in the HPI. Past Medical History Past Medical History: GERD/Reflux Additional Past Medical History / Comment(s): boarderline sleep apnea, History of Any Multi-Drug Resistant Organisms: None Reported Past Surgical History: Section, Tonsillectomy Additional Past Surgical History / Comment(s): D & C, Exploritoty surgery to check ovaries, top dentures, Past Anesthesia/Blood Transfusion Reactions: No Reported Reaction Past Psychological History: Anxiety, Depression Smoking Status: Current every day smoker Past Alcohol Use History: None Reported Past Drug Use History: None Reported <Angela Moura - Last Filed: 03/27/25 17:49> General Exam Limitations: no limitations <Angela Moura - Last Filed: 03/27/25 17:49> General appearance: alert, in no apparent distress Head exam: Present: atraumatic, normocephalic, normal inspection Eye exam: Present: normal appearance, PERRL, EOMI. Absent: scleral icterus, conjunctival injection, periorbital swelling ENT exam: Present: normal exam, mucous membranes moist Neck exam: Present: normal inspection. Absent: tenderness, meningismus, lymphadenopathy Respiratory exam: Present: normal lung sounds bilaterally. Absent: respiratory distress, wheezes, rales, rhonchi, stridor Cardiovascular Exam: Present: regular rate, normal rhythm, normal heart sounds. Absent: systolic murmur, diastolic murmur, rubs, gallop, clicks GI/Abdominal exam: Present: soft, normal bowel sounds. Absent: distended, tenderness, guarding, rebound, rigid Extremities exam: Present: normal inspection, full ROM, normal capillary refill. Absent: tenderness, pedal edema, joint swelling, calf tenderness Back exam: Present: normal inspection Neurological exam: Present: alert, oriented X3, CN II-XII intact Psychiatric exam: Present: normal affect, normal mood Skin exam: Present: warm, dry, intact, normal color. Absent: rash <Isrrael Bains - Last Filed: 04/04/25 19:35> - General Exam Comments Initial Comments: Visual Physical Exam Vital signs reviewed General: Well-appearing, nontoxic, no acute distress. Head: Normocephalic, atraumatic Eyes: PERRLA, EOMI ENT: Airway patent Chest: Nonlabored breathing Skin: No visual rash, normal skin tone Neuro: Alert and oriented 3 Musculoskeletal: No gross abnormalities (Angela Moura) Course <Isrrael Bains - Last Filed: 04/04/25 19:35> Vital Signs 03/27/25 03/27/25 03/27/25 16:55 22:09 23:13 Temperature 98.1 F Pulse Rate 78 69 62 Respiratory 20 18 16 Rate Blood Pressure 122/75 115/62 O2 Sat by Pulse 99 97 Oximetry 03/28/25 03/28/25 00:17 02:02 Temperature Pulse Rate 80 71 Respiratory 18 18 Rate Blood Pressure 150/68 115/72 O2 Sat by Pulse 95 Oximetry - Reevaluation(s) Reevaluation #1: 03/28/25 00:00 Medical records reviewed (Isrrael Bains) Reevaluation #2: 03/28/25 00:00 Patient symptoms relatively unchanged (Isrrael Bains) Reevaluation #3: 03/28/25 00:00 Patient informed of results questions answered (Isrrael Bains) Reevaluation #4: Was pt. sent in by a medical professional or institution ([facility], EMPLOYMENT APPEALS EXAMINER, urgent care, hospital, or longterm...) When possible be specific @ -no Did you speak to anyone other than the patient for history (EMS, parent, family, police, friend...)? What history was obtained from this source @ -no Did you review nursing and triage notes (agree or disagree)? Why? @ -agree Are old charts reviewed (outside hosp., previous admission, EMS record, old EKG, old radiological studies, urgent care reports/EKG's, longterm records)? Report findings @ -yes Differential Diagnosis (chest pain, altered mental status, abdominal pain women, abdominal pain men, vaginal bleeding, weakness, fever, dyspnea, syncope, headache, dizziness, GI bleed, back pain, seizure, CVA, palpatations, mental health, musculoskeletal)? @ -prior EKG interpreted by me (3pts min.). @ -yes X-rays interpreted by me (1pt min.). @ -no CT interpreted by me (1pt min.). @ -no U/S interpreted by me (1pt. min.). @ -yes negative for acute disease What testing was considered but not performed or refused? (CT, X-rays, U/S, labs)? Why? @ -none What meds were considered but not given or refused? Why? @ -none Did you discuss the management of the patient with other professionals (professionals i.e. [employer] [facility], EMPLOYMENT APPEALS EXAMINER, lab, RT, psych nurse, clinical social work therapist, pcat instructor, teacher, disbursing officer, case therapist)? Give summary @ -no Was smoking cessation discussed for >3mins.? @ -no Was critical care preformed (if so, how long)? @ -no Were there social determinants of health that impacted care today? How? (Homelessness, low income, unemployed, alcoholism, drug addiction, transportation, low edu. Level, literacy, decrease access to med. care, alf, rehab)? @ -none Was there de-escalation of care discussed even if they declined (Discuss DNR or withdrawal of care, Hospice)? DNR status @ -no What co-morbidities impacted this encounter? (DM, HTN, Smoking, COPD, CAD, Cancer, CVA, ARF, Chemo, Hep., AIDS, mental health diagnosis, sleep apnea, morbid obesity)? @ -none Was patient admitted / discharged? Hospital course, mention meds given and route, prescriptions, significant lab abnormalities, going to OR and other pertinent info. @ - 34 female to ER for evaluation of lower extremity edema headache postoperative pain and symptoms. Recent no acute findings here in the ER patient feels improved and can be discharged home Discharge Undiagnosed new problem with uncertain prognosis? @ -no Drug Therapy requiring intensive monitoring for toxicity (Heparin, Nitro, Insulin, Cardizem)? @ -no Were any procedures done? @ -no Diagnosis/symptom? @ -Postoperative pain lower extremity edema Acute, or Chronic, or Acute on Chronic? @ -Acute Uncomplicated (without systemic symptoms) or Complicated (systemic symptoms)? @ -Complicated Side effects of treatment? @ -no Exacerbation, Progression, or Severe Exacerbation? @ -exacerbation Poses a threat to life or bodily function? How? (Chest pain, USA, HI, pneumonia, PE, COPD, DKA, ARF, appy, cholecystitis, CVA, Diverticulitis, Homicidal, Suicidal, threat to staff... and all critical care pts) @ -yes postoperative complaint (Isrrael Bains) Reevaluation #5: Differential Weakness: Hypoglycemia, shock, sepsis, hyponatremia, anemia, infection, HI, ETOH, adverse medicine reaction, overdose, stroke, this is not meant to be an all-inclusive list. (Isrrael Bains) Medical Decision Making <Angela Moura - Last Filed: 03/27/25 17:49> - Lab Data Result diagrams: 03/27/25 18:54 03/27/25 18:54 - Radiology Data Radiology results: report reviewed (Ultrasound bilateral lower extremities negative for acute disease), image reviewed <Isrrael Bains - Last Filed: 04/04/25 19:35> - Medical Decision Making I performed the quick note portion of this visit, electronically signed Angela Moura PA-C (Angela Moura) 34 female to ER for evaluation of lower extremity edema headache postoperative pain and symptoms. Recent no acute findings here in the ER patient feels improved and can be discharged home (Isrrael Bains) - Lab Data Lab Results 03/27/25 03/27/25 03/27/25 Range/Units 18:54 18:54 21:58 WBC 11.53 H (4.50-10.00) 10*3/uL RBC 3.57 L (4.10-5.20) 10*6/uL Hgb 9.7 L (12.0-15.0) g/dL Hct 30.0 L (37.2-46.3) % MCV 84.0 (80.0-97.0) fL MCH 27.2 (27.0-32.0) pg MCHC 32.3 (32.0-37.0) g/dL Plt Count 399 (140-440) 10*3/uL MPV 9.7 (9.5-12.2) fL Immature Gran % (Auto) 0.5 % Neutrophils % 63.9 % Lymphocytes % 26.3 % Monocytes % 6.6 % Eosinophils % 2.3 % Basophils % 0.4 % Immature Gran # 0.06 H (0.00-0.04) 10*3/uL Neutrophils # 7.36 (1.80-7.70) 10*3/uL Lymphocytes # 3.03 (0.90-5.00) 10*3/uL Monocytes # 0.76 (0.20-1.00) 10*3/uL Eosinophils # 0.27 (0.04-0.35) 10*3/uL Basophils # 0.05 (0.00-0.10) 10*3/uL D-Dimer 1.44 H (<0.60) mg/L FEU Sodium 138 (137-145) mmol/L Potassium 4.0 (3.5-5.1) mmol/L Chloride 107 (98-107) mmol/L Carbon Dioxide 22 (22-30) mmol/L Anion Gap 9 mmol/L BUN 12 (7-17) mg/dL Creatinine 0.73 (0.52-1.04) mg/dL Est GFR (CKD-EPI)AfAm >90 (>60 ml/min/1.73 sqM) Est GFR (CKD-EPI)NonAf >90 (>60 ml/min/1.73 sqM) Glucose 102 H (74-99) mg/dL Uric Acid 7.4 (3.7-7.4) mg/dL Calcium 9.0 (8.4-10.2) mg/dL Total Bilirubin 0.4 (0.2-1.3) mg/dL AST 19 (14-36) U/L ALT 20 (4-34) U/L Alkaline Phosphatase 95 (38-126) U/L Lactate Dehydrogenase 221 (120-246) U/L Total Protein 6.0 L (6.3-8.2) g/dL Albumin 3.3 L (3.5-5.0) g/dL Urine Color Urine Appearance (Clear) Urine pH (5.0-8.0) Ur Specific Lafferty (1.001-1.035) Urine Protein (Negative) Urine Glucose (UA) (Negative) Urine Ketones (Negative) Urine Blood (Negative) Urine Nitrite (Negative) Urine Bilirubin (Negative) Urine Urobilinogen (<2.0) mg/dL Ur Leukocyte Esterase (Negative) 03/27/25 Range/Units 22:09 WBC (4.50-10.00) 10*3/uL RBC (4.10-5.20) 10*6/uL Hgb (12.0-15.0) g/dL Hct (37.2-46.3) % MCV (80.0-97.0) fL MCH (27.0-32.0) pg MCHC (32.0-37.0) g/dL Plt Count (140-440) 10*3/uL MPV (9.5-12.2) fL Immature Gran % (Auto) % Neutrophils % % Lymphocytes % % Monocytes % % Eosinophils % % Basophils % % Immature Gran # (0.00-0.04) 10*3/uL Neutrophils # (1.80-7.70) 10*3/uL Lymphocytes # (0.90-5.00) 10*3/uL Monocytes # (0.20-1.00) 10*3/uL Eosinophils # (0.04-0.35) 10*3/uL Basophils # (0.00-0.10) 10*3/uL D-Dimer (<0.60) mg/L FEU Sodium (137-145) mmol/L Potassium (3.5-5.1) mmol/L Chloride (98-107) mmol/L Carbon Dioxide (22-30) mmol/L Anion Gap mmol/L BUN (7-17) mg/dL Creatinine (0.52-1.04) mg/dL Est GFR (CKD-EPI)AfAm (>60 ml/min/1.73 sqM) Est GFR (CKD-EPI)NonAf (>60 ml/min/1.73 sqM) Glucose (74-99) mg/dL Uric Acid (3.7-7.4) mg/dL Calcium (8.4-10.2) mg/dL Total Bilirubin (0.2-1.3) mg/dL AST (14-36) U/L ALT (4-34) U/L Alkaline Phosphatase (38-126) U/L Lactate Dehydrogenase (120-246) U/L Total Protein (6.3-8.2) g/dL Albumin (3.5-5.0) g/dL Urine Color Yellow Urine Appearance Clear (Clear) Urine pH 5.5 (5.0-8.0) Ur Specific Lafferty 1.028 (1.001-1.035) Urine Protein Negative (Negative) Urine Glucose (UA) Negative (Negative) Urine Ketones Negative (Negative) Urine Blood Negative (Negative) Urine Nitrite Negative (Negative) Urine Bilirubin Negative (Negative) Urine Urobilinogen 2.0 (<2.0) mg/dL Ur Leukocyte Esterase Negative (Negative) Disposition <Angela Moura - Last Filed: 03/27/25 17:49> Is patient prescribed a controlled substance at d/c from ED?: No Time of Disposition: 01:30 <Isrrael Bains - Last Filed: 04/04/25 19:35> Clinical Impression: History of , Obesity, Bilateral leg edema Disposition: HOME SELF-CARE Condition: Good Instructions (If sedation given, give patient instructions): Leg Edema (ED) Referrals: Curt Ni MD [Primary Care Provider] - 1-2 days
[2025-03-27 19:11] LABS: Basophils # (A) 0.05 10*3/uL (0.00-0.10); Basophils % (A) 0.4 %; Eosinophils # (A) 0.27 10*3/uL (0.04-0.35); Eosinophils % (A) 2.3 %; HGB 9.7 g/dL (12.0-15.0); Lymphocytes # (A) 3.03 10*3/uL (0.90-5.00); Lymphocytes % (A) 26.3 %; MCH 27.2 pg (27.0-32.0); MCHC 32.3 g/dL (32.0-37.0); Mean Platelet Volume 9.7 fL (9.5-12.2); Monocytes # (A) 0.76 10*3/uL (0.20-1.00); Monocytes % (A) 6.6 %; Neutrophils # (A) 7.36 10*3/uL (1.80-7.70); Neutrophils % (A) 63.9 %; Platelet Count 399 10*3/uL (140-440); RBC 3.57 10*6/uL (4.10-5.20); RDW 14.4 % (11.5-14.5); WBC 11.53 10*3/uL (4.50-10.00)
[2025-03-27 19:23] LABS: ALT 20 U/L (4-34); AST 19 U/L (14-36); African American GFR (CKD) >90 (>60 ml/min/1.73 sqM); Albumin 3.3 g/dL (3.5-5.0); Alkaline Phosphatase 95 U/L (38-126); Anion Gap 9 mmol/L; Blood Urea Nitrogen 12 mg/dL (7-17); Carbon Dioxide 22 mmol/L (22-30); Chloride 107 mmol/L (98-107); Glucose 102 mg/dL (74-99); LDH 221 U/L (120-246); Non-African American GFR(CKD) >90 (>60 ml/min/1.73 sqM); Sodium 138 mmol/L (137-145); Total Bilirubin 0.4 mg/dL (0.2-1.3); Uric Acid 7.4 mg/dL (3.7-7.4)
[2025-03-27 22:24] LABS: Appearance,Urine Clear (Clear); Bilirubin,Urine Negative (Negative); Blood,Urine Negative (Negative); Color,Urine Yellow; Glucose,Urine (UA) Negative (Negative); Ketones,Urine Negative (Negative); Leukocyte Esterase,Urine Negative (Negative); Nitrite,Urine Negative (Negative); PH, Urine 5.5 (5.0-8.0); Protein,Urine Negative (Negative); Specific Gravity,Urine 1.028 (1.001-1.035)
[2025-03-28 00:17] VITALS: RESP 18
--- NOTE | 2025-03-28 01:31 | US ---
EXAM: US Duplex Bilateral Lower Extremities Veins CLINICAL HISTORY: ITS.REASON US Reason: dvt TECHNIQUE: Real-time duplex ultrasound scan of the bilateral lower extremity veins integrating B-mode two-dimensional vascular structure, Doppler spectral analysis, color flow Doppler imaging and compression. COMPARISON: No relevant prior studies available. FINDINGS: Right deep veins: Unremarkable. No DVT in the right common femoral, femoral, proximal deep femoral or popliteal veins. The veins demonstrate normal color flow, are normally compressible, with normal phasic flow and/or augmentation response. Right superficial veins: Unremarkable. No thrombus in the visualized right great saphenous vein. Left deep veins: Unremarkable. No DVT in the left common femoral, femoral, proximal deep femoral or popliteal veins. The veins demonstrate normal color flow, are normally compressible, with normal phasic flow and/or augmentation response. Left superficial veins: Unremarkable. No thrombus in the visualized left great saphenous vein. Soft tissues: No acute findings. No popliteal cyst. Other findings: IMPRESSION: No DVT
[2025-03-28] MEDS: FUROSEMIDE 10 MG/ML 4 ML VIAL IV STA (02:01)
[2025-03-28 02:03] VITALS: BP 115/72; PULSE 71
== END 2025-03-28 02:27 | disposition home or self-care (01) ==
LOC: EC 16:46
DX: O12.05 Gestational edema, complicating the puerperium (principal); E66.9 Obesity, unspecified; O99.335 Smoking (tobacco) complicating the puerperium; F17.200 Nicotine dependence, unspecified, uncomplicated; Z88.1 Allergy status to other antibiotic agents; Z88.7 Allergy status to serum and vaccine; Z68.41 Body mass index [BMI] 40.0-44.9, adult; Z91.012 Allergy to eggs; Z88.8 Allergy status to other drugs, medicaments and biological substances
CPT/HCPCS: 36415; 93005; 85379; 80053; 83615; 84550; 85025; 81003; 93970; 99284; 96374; J1938